=== PATIENT | female | born 1970 | race Caucasian/White ===

== ENCOUNTER → 2017-09-23 12:19 | Outpatient (CLI) | payer OTHER, SELFPAY ==
--- NOTE | 2017-09-23 | DI.MG.S_ITS ---
BILATERAL DIGITAL SCREENING MAMMOGRAM 3D/2D WITH CAD: 09/23/2017 CLINICAL: Routine screening. Family history of breast cancer. Comparison is made to exam dated: 11/06/2010 mammogram - [facility]. The tissue of both breasts is extremely dense, which lowers the sensitivity of mammography. Current study was also evaluated with a Computer Aided Detection (CAD) system. No significant masses, calcifications, or other findings are seen in either breast. There has been no significant interval change. IMPRESSION: NEGATIVE There is no mammographic evidence of malignancy. A 1 year screening mammogram is recommended. This exam was interpreted at Station ID: [id number]. NOTE: For mammograms, a report in lay terms will be sent to the patient. Approximately 15% of breast malignancies will not be visualized mammographically. In the management of a palpable breast mass, a negative mammogram must not discourage biopsy of a clinically suspicious lesion. Electronically Signed By: Emre mina/frankie:09/26/2017 07:37:40 letter sent: Normal Exam ACR BI-RADS Category 1: Negative 3341F
== END ==
PROVIDERS: Family Provider Family Medicine; PCP Family Medicine; Visit Provider Family Medicine
DX: Z12.31 Encounter for screening mammogram for malignant neoplasm of breast (principal); Z80.3 Family history of malignant neoplasm of breast
CPT/HCPCS: 77063; 77067

== ENCOUNTER 2017-09-27 11:55 | Emergency (ER) | payer OTHER, SELFPAY ==
--- NOTE | 2017-09-27 12:00 | ED_ITS ---
HPI - Wound/Laceration General Chief Complaint: Wound/Laceration Stated Complaint: SLICED UP RIGHT HAND Time Seen by Provider: 09/27/17 12:00 Source: patient Mode of arrival: ambulatory Limitations: no limitations History of Present Illness HPI narrative: Healthy 46-year-old bhayg-ssqp-thezpleb female here for evaluation of a cut to her left hand. States that it occurred while she was cutting an avocado. Unsure of her last tetanus shot. Held pressure on the area. Came in for evaluation Related Data Previous Rx's Medication Instructions Recorded estradiol [Vivelle-Dot] 1 patch TOPICAL SEE INSTRUCTIONS 07/22/17 #24 patch estradiol [Vivelle-Dot] 1 patch TOPICAL SEE INSTRUCTIONS 07/22/17 #8 patch Allergies Allergy/AdvReac Type Severity Reaction Status Date / Time ciprofloxacin [CIPROFLOXACIN] Allergy Unknown TENDONITIS Unverified 08/17/17 12: 20 promethazine [PROMETHAZINE] Allergy Unknown Unverified 08/17/17 12:20 Review of Systems Musculoskeletal Comments: Pain with movement of the MCP joint of the left hand Integumentary/Breasts Comments: Cut to left hand Neurologic Comments: Tingling to left index finger Hematologic/Lymphatic Denies easy bruising PFSH Surgical History Status post dilation and curettage (04/10/12) Status post dilation and curettage (09/17/11) Status post hysterectomy (09/17/11) Status post hysterectomy with oophorectomy Status post laparoscopy (09/17/11) Status post ovarian cystectomy (09/17/11) Family History Father CAD (coronary artery disease) CVA (cerebral infarction) Hyperlipidemia Family history of Alzheimer's disease Mother Hyperlipidemia Fibromyalgia muscle pain Cutaneous lupus erythematosus History of breast cancer, Onset Age: 64 Exam Initial Vital Signs Initial Vital Signs: Vital Signs Temperature 97.2 F L 09/27/17 12:11 Pulse Rate 88 09/27/17 12:11 Respiratory Rate 13 09/27/17 12:11 Blood Pressure 119/73 09/27/17 12:11 Pulse Oximetry 100 09/27/17 12:11 Skin Other: 2.5 cm laceration to the radial aspect of the left index finger over the MCP joint. Neuro Other: Sensation intact to light touch distal left index finger however does have some tingling on the radial aspect distally. Extrem Other: Painful movement of the MCP joint of the left index finger secondary to the cut in the location. No pain with movement of PIP D IP joint on the left index finger. Procedures Joint Aspiration/Injection Laceration 1: Site: hand Side (If applicable): left Size (cm): 2.5 Description: linear Depth: involves muscle layer Local Anesthetic: lidocaine 1% and with bicarb Amount of anesthesia used (mL): 3 Pre-repair: wound explored and irrigated extensively Skin layer closed with: nylon Size (cm): 3-0 Number of sutures: 6 Technique: simple, interrupted Muscle layer closed with: chromic gut Size: 5-0 Number of sutures: 1 Technique: simple, interrupted Course Vital Signs - 8 hr 09/27/17 12:11 Temperature 97.2 F L Pulse Rate 88 Respiratory Rate 13 Blood Pressure 119/73 Pulse Oximetry 100 MDM - Wound/Laceration MDM Narrative Medical decision making narrative: Patient is neurovascular intact over does have some tingling on the radial aspect of the distal index finger. Exploration of the wound does not reveal a severed tendon. Does have a small cut in the capsule of the MCP joint however though cut does not appear to go into the joint. One stitch was placed in this layer. Wound was closed as described above. Patient was informed that despite our interventions today she would have a scar. She was given care instructions. She was instructed that this was in the area where the nerve was and that tingling may persist in her finger and there is a small possibility that she would have deficits in this area. She expressed understanding. She was given care instructions. She was given return precautions. Were able to contact patient's primary doctor and found out that her last tetanus shot was within the past 10 years. Patient and expressed understanding and agreement with plan Discharge Plan Departure Patient Disposition: Home, Self-Care Clinical Impression: Hand laceration Instructions: How to Care for a Laceration After Repair Activity Restrictions/Additional Instructions: Keep the bandage on for the next 24 hr. After that you can shower like normal wash her hand like normal however do not soak her hand in anything. The stitches need to be removed in 7-10 days. You can follow up with her primary care doctor or return to the emergency department for this. Return to the emergency department sooner for any new symptoms, worsening pain, signs of infection, or any other concerning symptoms Prescriptions: No Action estradiol [Vivelle-Dot] 0.075 MG/24 HR patch semiweekly 1 patch Topical SEE INSTRUCTIONS Qty: 24 RF: 3 estradiol [Vivelle-Dot] 0.075 MG/24 HR patch semiweekly 1 patch Topical SEE INSTRUCTIONS Qty: 8 RF: 0
[2017-09-27 12:11] VITALS: BP 119/73; PULSE 88; RESP 13; TEMP 36.2; O2SAT 100
--- NOTE | 2017-09-27 12:38 | PC.NURSE ---
lac repaired by suture by , dressing margarito and nikolas. wound cleansed by md prior suture. told procedure well
[2017-09-27 12:51] VITALS: BP 111/61; PULSE 51; RESP 12; O2SAT 100
== END 2017-09-27 12:56 | disposition home or self-care (01) ==
PROVIDERS: Emergency Provider Emergency Medicine; Family Provider Family Medicine; PCP Family Medicine
DX: S61.411A Laceration without foreign body of right hand, initial encounter (principal); W26.0XXA Contact with knife, initial encounter
CPT/HCPCS: 12001; 12011; 99282; 99283

== ENCOUNTER → 2017-10-11 07:37 | Outpatient (CLI) | payer OTHER, SELFPAY ==
[2017-10-11 08:14] LABS: Cholesterol 228 mg/dL (140-199); HDL Cholesterol 53 mg/dL (40-60); LDL Cholesterol Calculated 151 mg/dL (<100); Triglycerides 120 mg/dL (35-150)
[2017-10-11 08:31] LABS: Free T3, Triiodothyronine Free 3.47 pg/mL (2.77-5.27); Free T4, Direct Thyroxine 0.92 ng/dL (0.78-2.19)
[2017-10-11 08:45] LABS: Thyroid Stimulating Hormone 2.57 uIU/mL (0.47-4.68)
[2017-10-13 15:15] LABS: Thyroid Peroxidase Antibodies 3 IU/mL (< 9)
== END ==
PROVIDERS: PCP Family Medicine; Visit Provider Naturopath
DX: E06.3 Autoimmune thyroiditis (principal); E78.2 Mixed hyperlipidemia
CPT/HCPCS: 36415; 80061; 84439; 84443; 84481; 86376

== ENCOUNTER → 2018-04-05 09:33 | Outpatient (CLI) | payer OTHER, SELFPAY ==
--- NOTE | 2018-04-05 09:34 | DI.ECHO.S_ITS ---
[facility] [facility]---------+ [facility] +---------+ : : [address] : : : : [id number] : : : : Phone: [phone] Echocardiogram Report + + :Name: JENIFER ESPANA Study Date: 04/05/2018 Height: 65 in : :[facility] Exam Location: [facility] Weight: 148 lb : : Gender: Female BSA: 1.7 m2 : :: 1970 Age: 47 yrs BP: 102/62 mmHg: :Reason For Study: Bicuspid Aortic Valve : :Ordering Physician: Ivan : :Tenzin Performed By: Marily Yu : :Referring: IVAN DOS SANTOS : + + Interpretation Summary The left ventricle is normal in size, wall thickness, and systolic function without any focal wall motion abnormalities. The ejection fraction is estimated to be 55-60%. There has been no significant change in LVEF since the previous study. The right ventricle is normal in size and function. The aortic valve is bicuspid. The aortic valve is mildly calcified. There is no hemodynamically significant valvular aortic stenosis. No aortic regurgitation is present. No significant change from the previous study. Procedure: A two-dimensional transthoracic echocardiogram with color flow and Doppler was performed. The study quality was technically adequate. Comparison is made with the echocardiogram of 01/13/2017. The patient was in sinus bradycardia with heart rates between 46-58 bpm during the exam. Left Ventricle: The left ventricle is normal in size, wall thickness, and systolic function without any focal wall motion abnormalities. There is no thrombus. The ejection fraction is estimated to be 55-60%. There has been no significant change since the previous study. Left ventricular wall motion is normal. Diastolic parameters suggest probable normal left ventricular diastolic function and normal filling pressures. Right Ventricle: The right ventricle is normal in size and function. Atria: Both atria are normal in size. There has been no significant change since the previous study. The interatrial septum is intact with no evidence for an atrial septal defect. Mitral Valve: The mitral valve is normal in structure and function. There is trace mitral regurgitation. Aortic Valve: The aortic valve is bicuspid. The aortic valve is mildly calcified. There is no hemodynamically significant valvular aortic stenosis. No aortic regurgitation is present. Tricuspid Valve: The tricuspid valve is normal in structure and function. There is a trace or physiologic amount of tricuspid regurgitation. Pulmonary artery pressures cannot be estimated because of the lack of a measurable TR jet velocity. Pulmonic Valve: The pulmonic valve is normal in structure and function. There is a trace or physiologic amount of pulmonic regurgitation. Great Vessels: The aortic root is normal size. The ascending aorta could not be visualized. The IVC is of normal diameter and collapses less than 50% with a sniff. This suggests a right atrial pressure of 8 mm Hg. Pericardium/ Pleura There is no pericardial effusion. There is no pleural effusion. MMode/2D Measurements & Calculations LVIDd: 4.5 cm LVOT diam: 2.1 cm LVIDs: 3.0 cm Ao root diam: 3.0 cm FS: 34.5 % IVSd: 0.59 cm LVPWd: 0.73 cm LV hinkle. diameter/BSA (cm/m^2): 2.6 LV sys. diameter/BSA (cm/m^2): 1.7 LA A2 area: 17.4 cm2 RA long axis: 4.4 cm LA A4 area: 14.3 cm2 RA area: 15.3 cm2 LA length (vol): 4.5 cm RA vol: 45.5 ml LA vol: 46.9 ml RA : 26.1 ml/m2 LA vol index: 27.0 ml/m2 IVC diam: 2.0 cm TAPSE: 2.4 cm Doppler Measurements & Calculations Ao V2 max: 203.2 cm/sec LVOT Max Álvaro: 78.9 cm/sec Ao V2 mean: 146.6 cm/sec LV V1 max P.5 mmHg Ao max P.5 mmHg LV V1 VTI: 19.0 cm Ao mean P.7 mmHg LUCIO(I,D): 1.2 cm2 Ao V2 VTI: 51.2 cm LUCIO(V,D): 1.3 cm2 sev ratio: 0.37 LUCIO indexed to BSA (cm^2/m^2): 0.70 MV E max álvaro: 88.9 cm/sec MV A max álvaro: 53.5 cm/sec MV E/A: 1.7 Med Peak E' Álvaro: 12.3 cm/sec E/E' med: 7.2 Lat Peak E' Álvaro: 14.5 cm/sec E/E' lat: 6.1 E/e' average: 6.7 MV dec time: 0.11 sec Reading Physician:EMMA
== END ==
PROVIDERS: PCP Family Medicine; Visit Provider Family Medicine
DX: Q23.1 Congenital insufficiency of aortic valve (principal)
CPT/HCPCS: 93306

== ENCOUNTER → 2018-12-14 16:58 | Outpatient (CLI) | payer OTHER, SELFPAY ==
--- NOTE | 2018-12-14 | DI.MG.S_ITS ---
BILATERAL DIGITAL SCREENING MAMMOGRAM 3D/2D WITH CAD: 12/14/2018 CLINICAL: Routine screening. Family history of breast cancer. Comparison is made to exams dated: 09/23/2017 mammogram - [facility] and 11/06/2010 mammogram - [facility]. The tissue of both breasts is heterogeneously dense. This may lower the sensitivity of mammography. Current study was also evaluated with a Computer Aided Detection (CAD) system. There are benign calcifications in both breasts. No significant masses, calcifications, or other findings are seen in either breast. There has been no significant interval change. IMPRESSION: There is no mammographic evidence of malignancy. A 1 year screening mammogram is recommended. This exam was interpreted at Station ID: [id number]. NOTE: For mammograms, a report in lay terms will be sent to the patient. Approximately 15% of breast malignancies will not be visualized mammographically. In the management of a palpable breast mass, a negative mammogram must not discourage biopsy of a clinically suspicious lesion. Electronically Signed By: Christopher pitt/frankie:12/15/2018 08:18:24 letter sent: Normal Exam ACR BI-RADS Category 2: Benign Finding(s) 3342F
== END ==
PROVIDERS: PCP Family Medicine; Visit Provider Family Medicine
DX: Z12.31 Encounter for screening mammogram for malignant neoplasm of breast (principal); Z80.3 Family history of malignant neoplasm of breast
CPT/HCPCS: 77063; 77067

== ENCOUNTER → 2018-12-15 15:17 | Outpatient (CLI) | payer OTHER, SELFPAY ==
[2018-12-15 15:35] LABS: Add Manual Diff / Slide Review NO; Basophils Absolute Auto 0 /uL (0-100); Basophils Percent Auto 0.4 % (0-2); Eosinophils Absolute Auto 100 /uL (0-450); Eosinophils Percent Auto 0.7 % (2-4); Hematocrit 39.7 % (36-46); Hemoglobin 13.7 g/dL (12.0-16.0); Lymphocytes Absolute Auto 2200 /uL (1100-4500); Lymphocytes Percent Auto 27.8 % (25-40); Mean Corpuscular HGB Conc 34.6 % (30-36); Mean Corpuscular Hemoglobin 31.4 PG (26-34); Mean Corpuscular Volume 90.5 fL (80-100); Monocytes Absolute Auto 500 /uL (0-900); Monocytes Percent Auto 6.6 % (3-14); Neutrophils Absolute Auto 5100 /uL (1500-7000); Neutrophils Percent Auto 64.5 % (50-75); Platelet Count 199 X10^3/uL (150-400); Red Blood Cell Count 4.38 X10^6/uL (4.0-5.2); White Blood Cell Count 7.8 X10^3/uL (4.5-11.0)
[2018-12-15 16:46] LABS: Alanine Aminotransferase 22 IU/L (9-52); Albumin 4.5 g/dL (3.5-5.0); Albumin Globulin Ratio 1.6 (1.0-2.8); Alkaline Phosphatase 66 U/L (38-126); Aspartate Aminotransferase 33 IU/L (14-36); BUN Creatinine Ratio 21.4 (6-22); Bilirubin Total 0.6 mg/dL (0.2-1.3); Blood Urea Nitrogen 15 mg/dL (7-17); Calcium 9.3 mg/dL (8.4-10.2); Carbon Dioxide 30 mmol/L (22-32); Chloride 100 mmol/L (98-107); Estimated Glomerular Filt Rate > 60.0 mL/min (>60); Globulin 2.9 g/dL (1.7-4.1); Glucose 90 mg/dL (70-100); HEMOLYSIS < 15 (0-50); Potassium 3.8 mmol/L (3.4-5.1); Sodium 139 mmol/L (137-145); Total Protein 7.4 g/dL (6.3-8.2)
[2018-12-15 17:13] LABS: TSH w/ Reflex to FT4 2.66 uIU/mL (0.47-4.68)
== END ==
PROVIDERS: PCP Family Medicine; Visit Provider Physician Assistant
DX: R11.0 Nausea (principal)
CPT/HCPCS: 36415; 80053; 84443; 85025; 87045; 87177; 87899

== ENCOUNTER → 2018-12-25 16:58 | Outpatient (CLI) | payer OTHER, SELFPAY | PROVIDERS: PCP Family Medicine; Visit Provider Family Medicine | DX: K29.70 Gastritis, unspecified, without bleeding (principal) | CPT/HCPCS: 83013 ==

== ENCOUNTER → 2019-05-10 09:36 | Outpatient (CLI) | payer OTHER, SELFPAY ==
--- NOTE | 2019-05-10 09:37 | DI.RAD.S_ITS ---
PROCEDURE: XR KNEE LT 3V INDICATIONS: twisted left knee TECHNIQUE: 3 views of the knee were acquired. COMPARISON: None. FINDINGS: Bones: No fractures or dislocations. No suspicious bony lesions. Soft tissues: [id number]-[id number] joint effusion is seen.. No suspicious soft tissue calcifications. IMPRESSION: [id number] left knee joint effusion. No fracture or dislocation. If indicated, MRI of left knee can be done for further evaluation for internal derangement. Dictated by: Cyrus Real M.D. on 05/10/2019 at 10:27 Approved by: Cyrus Real M.D. on 05/10/2019 at 10:32
== END ==
PROVIDERS: Family Provider Family Medicine; PCP Family Medicine; Visit Provider Physician Assistant
DX: M25.562 Pain in left knee (principal); M25.462 Effusion, left knee
CPT/HCPCS: 73562

== ENCOUNTER → 2020-07-12 13:29 | Outpatient (CLI) | payer OTHER, SELFPAY ==
--- NOTE | 2020-07-12 | DI.MG.S_ITS ---
BILATERAL DIGITAL SCREENING MAMMOGRAM 3D/2D WITH CAD: 07/12/2020 CLINICAL: Routine screening. Family history of breast cancer. Comparison is made to exams dated: 12/14/2018 mammogram, 09/23/2017 mammogram - [facility], and 11/06/2010 mammogram - [facility]. The tissue of both breasts is heterogeneously dense. This may lower the sensitivity of mammography. Current study was also evaluated with a Computer Aided Detection (CAD) system. There are benign calcifications in both breasts. No significant masses, calcifications, or other findings are seen in either breast. There has been no significant interval change. IMPRESSION: BENIGN There is no mammographic evidence of malignancy. A 1 year screening mammogram is recommended. This exam was interpreted at Station ID: [id number]. NOTE: For mammograms, a report in lay terms will be sent to the patient. Approximately 15% of breast malignancies will not be visualized mammographically. In the management of a palpable breast mass, a negative mammogram must not discourage biopsy of a clinically suspicious lesion. Electronically Signed By: Emre mina/frankie:07/14/2020 08:17:55 letter sent: Normal Exam ACR BI-RADS Category 2: Benign Finding(s) 3342F
== END ==
PROVIDERS: Family Provider Family Medicine; PCP Family Medicine; Referring Provider Family Medicine; Visit Provider Family Medicine
DX: Z12.31 Encounter for screening mammogram for malignant neoplasm of breast (principal); Z80.3 Family history of malignant neoplasm of breast
CPT/HCPCS: 77063; 77067

== ENCOUNTER → 2020-08-06 13:25 | Outpatient (CLI) | payer OTHER, SELFPAY ==
[2020-08-06] MEDS: COVID-19 VACC #1, MRNA(MOD) 100 MCG/0.5 ML VIAL IM (13:33)
== END ==
PROVIDERS: Family Provider Family Medicine; PCP Family Medicine; Visit Provider Internal Medicine
DX: Z23 Encounter for immunization (principal)
CPT/HCPCS: 0011A; 91301

== ENCOUNTER → 2020-09-03 10:17 | Outpatient (CLI) | payer OTHER, SELFPAY ==
[2020-09-03] MEDS: COVID-19 VACC #2, MRNA(MOD) 100 MCG/0.5 ML VIAL IM (10:27)
== END ==
PROVIDERS: Family Provider Family Medicine; PCP Family Medicine; Visit Provider Internal Medicine
DX: Z23 Encounter for immunization (principal)
CPT/HCPCS: 0012A; 91301

== ENCOUNTER → 2020-10-22 07:11 | Outpatient (CLI) | payer OTHER, SELFPAY ==
[2020-10-22 08:53] LABS: Alanine Aminotransferase 21 IU/L (<35); Albumin 4.1 g/dL (3.5-5.0); Albumin Globulin Ratio 1.4 (1.0-2.8); Alkaline Phosphatase 72 U/L (38-126); Aspartate Aminotransferase 41 IU/L (14-36); BUN Creatinine Ratio 15.9 (6-22); Bilirubin Total 0.7 mg/dL (0.2-1.3); Blood Urea Nitrogen 11 mg/dL (7-17); Calcium 9.4 mg/dL (8.4-10.2); Carbon Dioxide 32 mmol/L (22-32); Chloride 100 mmol/L (98-107); Cholesterol 211 mg/dL (140-199); Estimated Glomerular Filt Rate > 60.0 mL/min (>60); Glucose 77 mg/dL (70-100); HDL Cholesterol 47 mg/dL (40-60); HEMOLYSIS < 15 (0-50); LDL Cholesterol Calculated 137 mg/dL (<100); Potassium 3.5 mmol/L (3.4-5.1); Sodium 137 mmol/L (137-145); Total Protein 7.1 g/dL (6.3-8.2); Triglycerides 137 mg/dL (35-150)
[2020-10-27 16:49] LABS: H.pylori IgG 0.23 (0.00-0.79)
== END ==
PROVIDERS: PCP Family Medicine; Referring Provider Family Medicine; Visit Provider Family Medicine
DX: E78.2 Mixed hyperlipidemia (principal); K29.90 Gastroduodenitis, unspecified, without bleeding
CPT/HCPCS: 36415; 80053; 80061; 86140; 86677

== ENCOUNTER → 2020-10-30 08:59 | Outpatient (CLI) | payer OTHER, SELFPAY ==
--- NOTE | 2020-10-30 09:00 | DI.ECHO.S_ITS ---
[facility] +---------+ : : [address] : [place] : : : : [id number] : : : : Phone: [phone] +---------+ Echocardiogram Report + + :Name: JENIFER ESPANA Study Date: 10/30/2020 Height: 65 in : :[employer] ReadingLocation: Weight: 134 lb : : Gender: Female BSA: 1.7 m2 : :: 1970 Age: 49 yrs BP: 116/68 mmHg: :Reason For Study: Aortic, Biscupid Valve : :Ordering Physician: RAYA, : :IVAN Performed By: Jong Rivera : :Referring: IVAN DOS SANTOS : + + Interpretation Summary The ejection fraction is estimated to be 55-60%. There are no obvious focal wall motion abnormalities noted but poor endocardial definition reduces the sensitivity for the detection of such. There is mild aortic stenosis. The aortic valve mean gradient is 12 mmHg. A bicuspid aortic valve cannot be excluded. The IVC is dilated (diameter is greater than 2.1 cm) yet it collapses greater than 50% with a sniff. This suggests a right atrial pressure of 8 mm Hg. Procedure: A two-dimensional transthoracic echocardiogram with color flow and Doppler was performed. The study quality was technically adequate. Comparison is made with the echocardiogram of 04/05/2018. The patient was in sinus rhythm with heart rates between 48-62 bpm during the exam. Left Ventricle: The left ventricle is normal in size and wall thickness. Left ventricular systolic function is normal. The ejection fraction is estimated to be 55-60%. There has been no significant change since the previous exam. There are no obvious focal wall motion abnormalities noted but poor endocardial definition reduces the sensitivity for the detection of such. Diastolic parameters suggest probable normal left ventricular diastolic function and normal filling pressures. Right Ventricle: The right ventricle is normal in size and function. Atria: Both atria are normal in size. There is no Doppler evidence for an interatrial shunt. Mitral Valve: The mitral valve is normal in structure and function. There is trace mitral regurgitation. Aortic Valve: A bicuspid aortic valve cannot be excluded. There is mild aortic stenosis. The aortic valve mean gradient is 12 mmHg. The peak aortic velocity is 2.3 m/sec. No aortic regurgitation is present. Tricuspid Valve: The tricuspid valve is normal in structure and function. There is trace tricuspid regurgitation. Pulmonary artery pressures cannot be estimated because of the lack of a measurable TR jet velocity but the IVC suggests a CVP of around 8 mmHg. Pulmonic Valve: The pulmonic valve is not well visualized. There is no pulmonic valvular regurgitation. Great Vessels: The aortic root is normal size. The ascending aorta could not be visualized. The IVC is dilated (diameter is greater than 2.1 cm) yet it collapses greater than 50% with a sniff. This suggests a right atrial pressure of 8 mm Hg. Pericardium/ Pleura There is no pericardial effusion. There is no pleural effusion. MMode/2D Measurements & Calculations LVIDd: 4.6 cm LVOT diam: 1.9 cm LVIDs: 3.2 cm Ao root diam: 2.7 cm FS: 29.6 % IVSd: 0.63 cm LVPWd: 0.62 cm LV hinkle. diameter/BSA (cm/m^2): 2.8 LV sys. diameter/BSA (cm/m^2): 1.9 LA A4 area: 12.1 cm2 RA long axis: 3.7 cm LA length (vol): 3.9 cm RA area: 10.1 cm2 RA vol: 23.6 ml RA : 14.1 ml/m2 IVC diam: 2.3 cm RVD1 (basal): 3.4 cm TAPSE: 2.8 cm Doppler Measurements & Calculations Ao V2 max: 230.4 cm/sec LVOT Max Álvaro: 89.9 cm/sec Ao V2 mean: 167.3 cm/sec LV V1 max P.2 mmHg Ao max P.2 mmHg LV V1 VTI: 21.7 cm Ao mean P.3 mmHg LUCIO(I,D): 1.2 cm2 Ao V2 VTI: 52.6 cm LUCIO(V,D): 1.1 cm2 sev ratio: 0.41 LUCIO indexed to BSA (cm^2/m^2): 0.73 MV E max álvaro: 97.2 cm/sec PA V2 max: 81.0 cm/sec MV A max álvaro: 60.0 cm/sec PA V2 mean: 55.1 cm/sec MV E/A: 1.6 PA mean P.4 mmHg Med Peak E' Álvaro: 13.2 cm/sec PA pr(Accel): 2.2 mmHg E/E' med: 7.4 Lat Peak E' Álvaro: 13.1 cm/sec E/E' lat: 7.4 E/e' average: 7.4 MV dec time: 0.26 sec SV(LVOT): 63.8 ml Reading Physician:03:53 PM
== END ==
PROVIDERS: PCP Family Medicine; Referring Provider Family Medicine; Visit Provider Family Medicine
DX: Q23.1 Congenital insufficiency of aortic valve (principal)
CPT/HCPCS: C8929; Q9957

== ENCOUNTER 2020-12-02 10:30 | Outpatient (RCR) | payer OTHER, SELFPAY ==
--- NOTE | 2020-10-17 18:27 | PT.OIE ---
Current Diagnoses Stiffness of right hip, not elsewhere classified (10/17/20) Stiffness of left hip, not elsewhere classified (10/17/20) Other specified disorders of muscle (10/17/20) Post-void dribbling (10/17/20) Mixed incontinence (10/17/20) Abnormal posture (10/17/20) Past Medical History (Last Updated 08/30/20 @ 13:07 by Astrid Dave DO) Bicuspid aortic valve Hyperlipidemia Pelvic floor relaxation Past Surgical History (Last Updated 03/14/20 @ 16:20 by Astrid Dave DO) History of esophagogastroduodenoscopy (EGD) (~03/14/20) Status post appendectomy (04/29/14) Status post dilation and curettage (04/10/12) Status post dilation and curettage (09/17/11) Status post hysterectomy with oophorectomy (04/29/14) Status post hysteroscopy (09/17/11) Status post laparoscopy (09/17/11) Status post ovarian cystectomy (09/17/11) Visit Care Team Role Provider Type Astrid Dave DO Attending Provider Physician Primary Care Provider Referring Provider Specialty: [facility] Address: [address] [place] [address], [address], [facility] Email: [email or web address] Physical Therapy Initial Evaluation PT-OP-A Visit Information Start: 10/13/20 18:40 Freq: Status: Active Protocol: Document 10/17/20 10:38 LRN (Rec: 10/17/20 11:25 LRN [id number]) Out-Patient Physical Therapy Visit Information Visit Information Visit Type Initial Evaluation Visit Start Time 10:38 Visit Stop Time 11:21 Total Visit Minutes 43 Visit Number 1 Evaluation Information Evaluation Date 10/17/20 Precautions Precautions History or Endometriosis ( surgery at time of hyste) Hyste with ovaries and cervix removed (2013) Cervicalgia with hx of ruptured C5 (2010) 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 Torn LCL & ACL and fx tibia plateau - 05/09/2019 PT-OP-B Current Condition Start: 10/13/20 18:40 Freq: Status: Active Protocol: Document 10/17/20 10:38 LRN (Rec: 10/17/20 11:25 LRN [id number]) Current Condition History of Current Condition Onset Date 1 yr ago. Current Complaints Urinary frequency & incontinence w/occasional sneezing & trampoline use History of Current Condition Childbirth 2008, endometriosis with hyste (ovaries and cervix removed at [facility] in [place]) and endometrial tissue removed. Since surgery has occasional sharp jabs of pain pitch fork into abdomen happens 3x/ month (previously was 3x/day). Has done a lot to take out inflammation (no gluten or dairy) with lessening of pain. Prior Treatments and Tests Hyste in 2013 with excision of interior tissue to remove endometriosis tissue. First year had no bladder issue. Wears estrogen patch. Developmental History Developmental History Previous hx of Ruptured C5 - 2010. Has reduced inflammation in body by changing diet and lifestyle (lost 15# in 1.5 yrs ). Swims and rides bike. Treatment Goals Patient/Caregiver Goals Pt goal is to reduce urinary frequency and urinary leakage with sneezing and more confident jumping up/down. Prior Functional Status Baseline Function- ADL's Independent Baseline Function- Mobility Independent Baseline Function- Other No leakage with sneezing or jumping Frequent urination every 2 hrs . Current Functional Impairments (Reported) Functional Limitations- ADL's Uriary leakage with sneezing or jumping Frequent urination - hourly or less. 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 Personal Factors Other Personal Factors That May Effect Currently looking for a job. Therapy/Recovery History or Endometriosis ( surgery at time of hyste). Hyste with ovaries and cervix removed (2013). Cervicalgia with hx of ruptured C5 (2010). PT-OP-C Subjective Start: 10/13/20 18:40 Freq: Status: Active Protocol: Document 10/17/20 10:38 LRN (Rec: 10/17/20 11:25 LRN [id number]) Patient Questionnaires Pelvic Pain and Urgency/Frequency Patient Symptom Scale Pelvic Pain Score 17 (15-19 =76% +PST) OP-PT Pain Assessment Pain Assessment Grid Paper Pain Assessment Grid Completed No Location Bilateral Lower Abdomen Pain Location Details Intermittent Internal abdomen - Endo related Intensity 10 Scale Used Numeric (0 - 10) Description Sharp,Stabbing Comments Pain Comments Currently no palpable pain in lower abdominal region or external PF. PT-OP-I Pelvic Floor Start: 10/13/20 18:40 Freq: Status: Active Protocol: Document 10/17/20 10:38 LRN (Rec: 10/17/20 11:25 LRN [id number]) Pelvic Floor Assessment Urine Pelvic Floor Surgery No Urinary Symptoms Dribbling After Urination Other Urinary Symptoms Time between voids is every hour. Volume of urine passed is small. Sometimes feels bladder if full after urinating. Leakage Size Small Leakage Cause Sneeze Other Leakage Causes Jumping, waiting too long. Leaks Per Day Unknown Voiding Frequency 10-15 Nocturia 1 Bowel Bowel Surgery No Bowel Movement Frequency 1-2x/day [place] Stool Chart Type 1-7 4 Pelvic Clock Pelvic Clock 3-6 Tightness Pelvic Clock 6-9 Tightness Contraction Ability Manual Muscle Testing Left 3 Manual Muscle Testing Right 2 Manual Muscle Testing Anterior 3 Manual Muscle Testing Posterior 3 Muscle Endurance (Seconds) 10 Number of Quick Contractions In 10 10 Seconds Comments Pelvic Floor Comments Redness and tenderness of Labia Minora bilaterally. PT-OP-J Posture/Palpation/Skin Start: 10/13/20 18:40 Freq: Status: Active Protocol: Document 10/17/20 10:38 LRN (Rec: 10/17/20 11:25 LRN [id number]) Posture Evaluation Comments Posture Comments Sway back, slight anterior rotated pelvis. PT-OP-K Range of Motion Start: 10/13/20 18:40 Freq: Status: Active Protocol: Document 10/17/20 10:38 LRN (Rec: 10/17/20 11:25 LRN [id number]) Lumbar Spine Range of Motion Lumbar Spine Active Degrees Testing Position Standing Flexion 90 Extension 10 Rotation Left 40 Rotation Right 40 Lateral Flexion Left 10 Lateral Flexion Right 20 Hip Goniometric Range of Motion Hip Right Passive Testing Position Supine Abduction 40 Internal Rotation 35 External Rotation 45 Left Passive Testing Position Supine Abduction 30 Internal Rotation 30 External Rotation 60 PT-OP-M Strength Start: 10/13/20 18:40 Freq: Status: Active Protocol: Document 10/17/20 10:38 LRN (Rec: 10/17/20 11:25 LRN [id number]) Hip Strength Hip Manual Muscle Testing Right External Rotation 4+ Good+ Internal Rotation 4+ Good+ Left External Rotation 3 Fair Internal Rotation 4+ Good+ PT-OP-Q Treatments Start: 10/13/20 18:40 Freq: Status: Active Protocol: Document 10/17/20 10:38 LRN (Rec: 10/17/20 11:25 LRN [id number]) Self-Care/Home Management Treatment Education Other Education Discussed results of evaluation, goals & Plan of care, pt agreeable. Pt educated in use of Bladder Diary and I/S in tracking for 1 week. Discussed use of 2 different diaries for tracking of bladder. Activities Self-Care/Home Management Activities I/S pt in Happy Baby, DKTC stretch. PT-OP-T Assessment and Plan Start: 10/13/20 18:40 Freq: Status: Active Protocol: Document 10/17/20 10:38 LRN (Rec: 10/17/20 11:25 LRN [id number]) Physical Therapy Assessment Rehab Potential Rehabilitation Potential Good Evaluation Complexity Number of Personal Factors/Comorbidities 1-2 Number of Body Systems Impaired 4 or More Clinical Presentation at Evaluation Evolving Impairments Impairments Activity Tolerance,Pain, Posture,ROM,Strength Goals Three Impairment Urinary leakage with sneezing or jumping. Short Term Goal (STG) Pt will be able to sneeze without urinary leakage for improved pelvic health. STG Duration 11/28/20 Alf Goal (LTG) Pt will be able to confidently jump with less fear of urinary leakage for improved social engagement with activities such as stair ambulation. LTG Duration 01/15/21 Two Impairment Increased urinary frequency ( every hour) Short Term Goal (STG) Pt will be educated in PF/hip/ core stretches and urinary delay technique for bladder retraining. STG Duration 11/28/20 Registered Nurse Cardiovascular [facility] Goal (LTG) Decrease toileting frequency to every 2 hours or more during the day to allow pt to return to workforce without fear of frequent voiding. LTG Duration 01/15/21 One Impairment Lacks appropriate self care HEP Short Term Goal (STG) Pt will be educated in general vulvar and genital care. STG Duration 10/28/20 Alf Goal (LTG) Pt will be independent in a self care HEP and use of dilator for PF stretching. LTG Duration 01/15/21 Assessment Summary Assessment Pt presents with mixed incontinence due to PF tightness and soft tissue tightness of the lumbar spine and bilateral hips. Fortunately she doesn't appear to have involvement of her bowels. Her history of endometriosis may hinder the progress in her rehabilitation contributing to muscle tightness, although currently she is having reduced episodes of pelvic pain. The pt is mildly dry in her PF but she has noteable redness of her labia minor that may be associated to her genital/ vulvar care. If it doesn't improve after education in proper care she will be referred back for assessment/ treatment. The pt will benefit from skilled physical therapy to address the above stated goals. Physical Therapy Plan Frequency and Duration Frequency of Treatment 1x/Week Plan of Care Start Date 10/17/20 Plan of Care End Date 01/15/21 Therapeutic Interventions Therapeutic Interventions Aquatic Therapy,Home Exercise Program,Joint Mobilizations, Manual Therapy,Patient/ Caregiver Education,Self-Care/ Home Management,Soft Tissue Mobilization,Therapeutic Activities,Therapeutic Exercises Modalities Biofeedback Next Visit Focus/Plan Next Note Type Treatment Note Next Visit Plan Review bladder diary, pt education in proper vulvar/ genital care, deep breathing and transfers, proper squatting and lifting, sit to stand; HEP: PF/core/hip stretches, PF stretching with dilator, discuss foods, and water intake, downtraining of ANS. Improve hip/trunk mobility, improve abdominal soft tissue (bladder) mobility as needed.
--- NOTE | 2020-10-17 18:28 | PT.OPPOC ---
Physical, Occupational & Speech Therapy At [facility] Current Diagnoses Stiffness of right hip, not elsewhere classified (10/17/20) Stiffness of left hip, not elsewhere classified (10/17/20) Other specified disorders of muscle (10/17/20) Post-void dribbling (10/17/20) Mixed incontinence (10/17/20) Abnormal posture (10/17/20) Visit Care Team Role Provider Type Astrid Dave DO Attending Provider Physician Primary Care Provider Referring Provider Specialty: Family Practice Address: [address] [place] [address], [facility] [address], [address] Email: [email or web address] Plan Of Care PT-OP-T Assessment and Plan Start: 10/13/20 18:40 Freq: Status: Active Protocol: Document 10/17/20 10:38 LRN (Rec: 10/17/20 11:25 LRN [id number]) Physical Therapy Assessment Rehab Potential Rehabilitation Potential Good Evaluation Complexity Number of Personal Factors/Comorbidities 1-2 Number of Body Systems Impaired 4 or More Clinical Presentation at Evaluation Evolving Impairments Impairments Activity Tolerance,Pain, Posture,ROM,Strength Goals Three Impairment Urinary leakage with sneezing or jumping. Short Term Goal (STG) Pt will be able to sneeze without urinary leakage for improved pelvic health. STG Duration 11/28/20 Snf Goal (LTG) Pt will be able to confidently jump with less fear of urinary leakage for improved social engagement with activities such as stair ambulation. LTG Duration 01/15/21 Two Impairment Increased urinary frequency ( every hour) Short Term Goal (STG) Pt will be educated in PF/hip/ core stretches and urinary delay technique for bladder retraining. STG Duration 11/28/20 Snf Goal (LTG) Decrease toileting frequency to every 2 hours or more during the day to allow pt to return to workforce without fear of frequent voiding. LTG Duration 01/15/21 One Impairment Lacks appropriate self care HEP Short Term Goal (STG) Pt will be educated in general vulvar and genital care. STG Duration 10/28/20 Snf Goal (LTG) Pt will be independent in a self care HEP and use of dilator for PF stretching. LTG Duration 01/15/21 Assessment Summary Assessment Pt presents with mixed incontinence due to PF tightness and soft tissue tightness of the lumbar spine and bilateral hips. Fortunately she doesn't appear to have involvement of her bowels. Her history of endometriosis may hinder the progress in her rehabilitation contributing to muscle tightness, although currently she is having reduced episodes of pelvic pain. The pt is mildly dry in her PF but she has noteable redness of her labia minor that may be associated to her genital/ vulvar care. If it doesn't improve after education in proper care she will be referred back for assessment/ treatment. The pt will benefit from skilled physical therapy to address the above stated goals. Physical Therapy Plan Frequency and Duration Frequency of Treatment 1x/Week Plan of Care Start Date 10/17/20 Plan of Care End Date 01/15/21 Therapeutic Interventions Therapeutic Interventions Aquatic Therapy,Home Exercise Program,Joint Mobilizations, Manual Therapy,Patient/ Caregiver Education,Self-Care/ Home Management,Soft Tissue Mobilization,Therapeutic Activities,Therapeutic Exercises Modalities Biofeedback Next Visit Focus/Plan Next Note Type Treatment Note Next Visit Plan Review bladder diary, pt education in proper vulvar/ genital care, deep breathing and transfers, proper squatting and lifting, sit to stand; HEP: PF/core/hip stretches, PF stretching with dilator, discuss foods, and water intake, downtraining of ANS. Improve hip/trunk mobility, improve abdominal soft tissue (bladder) mobility as needed. Plan of Care Dates Plan of Care Start Date 10/17/20 Plan of Care End Date 01/15/21 Electronically Signed by: Gina Richey, PT 10/17/20 [id number] Please Sign and Return: I have reviewed this Plan of Care and certify that the skilled therapy services above are required to meet the patient?s needs. Physician Signature Date Printed Name and Credentials Clinical Instructor Signature Printed Name and Credentials
--- NOTE | 2020-10-24 16:19 | PT.OTN ---
Current Diagnoses Stiffness of right hip, not elsewhere classified (10/24/20) Stiffness of left hip, not elsewhere classified (10/24/20) Other specified disorders of muscle (10/24/20) Post-void dribbling (10/24/20) Mixed incontinence (10/24/20) Abnormal posture (10/24/20) Physical Therapy Treatment Note PT-OP-A Visit Information Start: 10/13/20 18:40 Freq: Status: Active Protocol: Document 10/24/20 13:35 LRN (Rec: 10/24/20 14:19 LRN [id number]) Out-Patient Physical Therapy Visit Information Visit Information Visit Type Treatment Note Visit Start Time 13:35 Visit Stop Time 14:14 Total Visit Minutes 44 Visit Number 2 Evaluation Information Evaluation Date 10/17/20 Precautions Precautions History or Endometriosis ( surgery at time of hyste) Hyste with ovaries and cervix removed (2013) Cervicalgia with hx of ruptured C5 (2010) 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 Torn LCL & ACL and fx tibia plateau - 05/09/2019 PT-OP-B Current Condition Start: 10/13/20 18:40 Freq: Status: Active Protocol: Document 10/17/20 10:38 LRN (Rec: 10/17/20 11:25 LRN [id number]) Current Condition History of Current Condition Onset Date 1 yr ago. Current Complaints Urinary frequency & incontinence w/occasional sneezing & trampoline use History of Current Condition Childbirth 2008, endometriosis with hyste (ovaries and cervix removed at [facility] in [place]) and endometrial tissue removed. Since surgery has occasional sharp jabs of pain pitch fork into abdomen happens 3x/ month (previously was 3x/day). Has done a lot to take out inflammation (no gluten or dairy) with lessening of pain. Prior Treatments and Tests Hyste in 2013 with excision of interior tissue to remove endometriosis tissue. First year had no bladder issue. Wears estrogen patch. Developmental History Developmental History Previous hx of Ruptured C5 - 2010. Has reduced inflammation in body by changing diet and lifestyle (lost 15# in 1.5 yrs ). Swims and rides bike. Treatment Goals Patient/Caregiver Goals Pt goal is to reduce urinary frequency and urinary leakage with sneezing and more confident jumping up/down. Prior Functional Status Baseline Function- ADL's Independent Baseline Function- Mobility Independent Baseline Function- Other No leakage with sneezing or jumping Frequent urination every 2 hrs . Current Functional Impairments (Reported) Functional Limitations- ADL's Uriary leakage with sneezing or jumping Frequent urination - hourly or less. 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 Personal Factors Other Personal Factors That May Effect Currently looking for a job. Therapy/Recovery History or Endometriosis ( surgery at time of hyste). Hyste with ovaries and cervix removed (2013). Cervicalgia with hx of ruptured C5 (2010). PT-OP-C Subjective Start: 10/13/20 18:40 Freq: Status: Active Protocol: Document 10/24/20 13:35 LRN (Rec: 10/24/20 14:19 LRN [id number]) OP-PT Subjective Patient Comments Patient Comments Didn't do bladder diary. This past week very hectic. Noticed with coffee she had more frequency and urgency. Consuming 25 or less mg of caffeine. PT-OP-I Pelvic Floor Start: 10/13/20 18:40 Freq: Status: Active Protocol: Document 10/17/20 10:38 LRN (Rec: 10/17/20 11:25 LRN [id number]) Pelvic Floor Assessment Urine Pelvic Floor Surgery No Urinary Symptoms Dribbling After Urination Other Urinary Symptoms Time between voids is every hour. Volume of urine passed is small. Sometimes feels bladder if full after urinating. Leakage Size Small Leakage Cause Sneeze Other Leakage Causes Jumping, waiting too long. Leaks Per Day Unknown Voiding Frequency 10-15 Nocturia 1 Bowel Bowel Surgery No Bowel Movement Frequency 1-2x/day [place] Stool Chart Type 1-7 4 Pelvic Clock Pelvic Clock 3-6 Tightness Pelvic Clock 6-9 Tightness Contraction Ability Manual Muscle Testing Left 3 Manual Muscle Testing Right 2 Manual Muscle Testing Anterior 3 Manual Muscle Testing Posterior 3 Muscle Endurance (Seconds) 10 Number of Quick Contractions In 10 10 Seconds Comments Pelvic Floor Comments Redness and tenderness of Labia Minora bilaterally. PT-OP-J Posture/Palpation/Skin Start: 10/13/20 18:40 Freq: Status: Active Protocol: Document 10/17/20 10:38 LRN (Rec: 10/17/20 11:25 LRN [id number]) Posture Evaluation Comments Posture Comments Sway back, slight anterior rotated pelvis. PT-OP-K Range of Motion Start: 10/13/20 18:40 Freq: Status: Active Protocol: Document 10/17/20 10:38 LRN (Rec: 10/17/20 11:25 LRN [id number]) Lumbar Spine Range of Motion Lumbar Spine Active Degrees Testing Position Standing Flexion 90 Extension 10 Rotation Left 40 Rotation Right 40 Lateral Flexion Left 10 Lateral Flexion Right 20 Hip Goniometric Range of Motion Hip Right Passive Testing Position Supine Abduction 40 Internal Rotation 35 External Rotation 45 Left Passive Testing Position Supine Abduction 30 Internal Rotation 30 External Rotation 60 PT-OP-M Strength Start: 10/13/20 18:40 Freq: Status: Active Protocol: Document 10/17/20 10:38 LRN (Rec: 10/17/20 11:25 LRN [id number]) Hip Strength Hip Manual Muscle Testing Right External Rotation 4+ Good+ Internal Rotation 4+ Good+ Left External Rotation 3 Fair Internal Rotation 4+ Good+ PT-OP-Q Treatments Start: 10/13/20 18:40 Freq: Status: Active Protocol: Document 10/24/20 13:35 LRN (Rec: 10/24/20 14:19 LRN [id number]) Therapeutic Exercises Supine Exercises Happy Baby Pose Supine Exercise Name Happy Baby Pose Reps/Minutes 3' Deep Breathing Supine Exercise Name Deep Breathing Training Reps/Minutes 10' Therapeutic Activity Therapeutic Activity Sit<>Stand w/breathing Name Sit <> stand w/breathing training Reps/Minutes 2' Sit<>Supine w/breathing Name Sit <> Supine w/breathing training Reps/Minutes 4' Comments Including verbal training/ cuing for transfers Self-Care/Home Management Treatment Education Other Education 20' Education in vulvar care and general genital hygiene. Transfer training w/breathing. Activities Self-Care/Home Management Activities Issued and reviewed HEP: Happy Baby Pose. Issued and reviewed for education (see above) handouts for general vulvar and genital care. PT-OP-T Assessment and Plan Start: 10/13/20 18:40 Freq: Status: Active Protocol: Document 10/24/20 13:35 LRN (Rec: 10/24/20 14:19 LRN [id number]) Physical Therapy Assessment Goals Three Impairment Urinary leakage with sneezing or jumping. Short Term Goal (STG) Pt will be able to sneeze without urinary leakage for improved pelvic health. STG Duration 11/28/20 Mortgage Loan Closer Goal (LTG) Pt will be able to confidently jump with less fear of urinary leakage for improved social engagement with activities such as stair ambulation. LTG Duration 01/15/21 Two Impairment Increased urinary frequency ( every hour) Short Term Goal (STG) Pt will be educated in PF/hip/ core stretches and urinary delay technique for bladder retraining. STG Duration 11/28/20 Mortgage Loan Closer Goal (LTG) Decrease toileting frequency to every 2 hours or more during the day to allow pt to return to workforce without fear of frequent voiding. LTG Duration 01/15/21 One Impairment Lacks appropriate self care HEP Short Term Goal (STG) Pt will be educated in general vulvar and genital care. STG Duration 10/28/20 Mortgage Loan Closer Goal (LTG) Pt will be independent in a self care HEP and use of dilator for PF stretching. LTG Duration 01/15/21 Assessment Summary Assessment Not able to review bladder diary because pt didn't complete. With deep breathing pt limited in L rib excursion , but was able to improve with practice to improve symmetry of movement. She still demonstrates shallow abdominal excursion; therefore further training needed. Pt receptive to PF care information. After discussion it appears use of bike may be causing labia minora skin irritation/ redness. Pt to monitor. Physical Therapy Plan Frequency and Duration Frequency of Treatment 1x/Week Plan of Care Start Date 10/17/20 Plan of Care End Date 01/15/21 Next Visit Focus/Plan Next Note Type Treatment Note Next Visit Plan Review bladder diary, review deep breathing and transfers. Teach proper squatting and lifting w/appropriate breathing and with sit to stand; HEP: PF/core/hip stretches, PF stretching with dilator, discuss foods, and water intake, downtraining of ANS. Improve hip/trunk mobility, improve abdominal soft tissue (bladder) mobility as needed.
--- NOTE | 2020-11-07 17:04 | PT.OTN ---
Current Diagnoses Stiffness of right hip, not elsewhere classified (11/07/20) Stiffness of left hip, not elsewhere classified (11/07/20) Other specified disorders of muscle (11/07/20) Post-void dribbling (11/07/20) Mixed incontinence (11/07/20) Abnormal posture (11/07/20) Physical Therapy Treatment Note PT-OP-A Visit Information Start: 10/13/20 18:40 Freq: Status: Active Protocol: Document 11/07/20 09:03 LRN (Rec: 11/07/20 09:48 LRN [id number]) Out-Patient Physical Therapy Visit Information Visit Information Visit Type Treatment Note Visit Start Time 09:03 Visit Stop Time 09:43 Total Visit Minutes 40 Visit Number 3 Evaluation Information Evaluation Date 10/17/20 Precautions Precautions History or Endometriosis ( surgery at time of hyste) Hyste with ovaries and cervix removed (2013) Cervicalgia with hx of ruptured C5-C6 disc (2010) 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 Torn LCL & ACL and fx tibia plateau - 05/09/2019 Upper back injury in training - 1995 PT-OP-B Current Condition Start: 10/13/20 18:40 Freq: Status: Active Protocol: Document 10/17/20 10:38 LRN (Rec: 10/17/20 11:25 LRN [id number]) Current Condition History of Current Condition Onset Date 1 yr ago. Current Complaints Urinary frequency & incontinence w/occasional sneezing & trampoline use History of Current Condition Childbirth 2008, endometriosis with hyste (ovaries and cervix removed at [facility] in [place]) and endometrial tissue removed. Since surgery has occasional sharp jabs of pain pitch fork into abdomen happens 3x/ month (previously was 3x/day). Has done a lot to take out inflammation (no gluten or dairy) with lessening of pain. Prior Treatments and Tests Hyste in 2013 with excision of interior tissue to remove endometriosis tissue. First year had no bladder issue. Wears estrogen patch. Developmental History Developmental History Previous hx of Ruptured C5 - 2011. Has reduced inflammation in body by changing diet and lifestyle (lost 15# in 1.5 yrs ). Swims and rides bike. Treatment Goals Patient/Caregiver Goals Pt goal is to reduce urinary frequency and urinary leakage with sneezing and more confident jumping up/down. Prior Functional Status Baseline Function- ADL's Independent Baseline Function- Mobility Independent Baseline Function- Other No leakage with sneezing or jumping Frequent urination every 2 hrs . Current Functional Impairments (Reported) Functional Limitations- ADL's Uriary leakage with sneezing or jumping Frequent urination - hourly or less. 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 Personal Factors Other Personal Factors That May Effect Currently looking for a job. Therapy/Recovery History or Endometriosis ( surgery at time of hyste). Hyste with ovaries and cervix removed (2013). Cervicalgia with hx of ruptured C5 (2010). PT-OP-C Subjective Start: 10/13/20 18:40 Freq: Status: Active Protocol: Document 11/07/20 09:03 LRN (Rec: 11/07/20 09:48 LRN [id number]) OP-PT Subjective Patient Comments Patient Comments Notices how caffiene is a trigger for her urination onset. Has been practicing breathing with swimming. No changes with urinary leakage. Sneezed once without leakage and did aggravator PF contraction. PT-OP-I Pelvic Floor Start: 10/13/20 18:40 Freq: Status: Active Protocol: Document 10/17/20 10:38 LRN (Rec: 10/17/20 11:25 LRN [id number]) Pelvic Floor Assessment Urine Pelvic Floor Surgery No Urinary Symptoms Dribbling After Urination Other Urinary Symptoms Time between voids is every hour. Volume of urine passed is small. Sometimes feels bladder if full after urinating. Leakage Size Small Leakage Cause Sneeze Other Leakage Causes Jumping, waiting too long. Leaks Per Day Unknown Voiding Frequency 10-15 Nocturia 1 Bowel Bowel Surgery No Bowel Movement Frequency 1-2x/day [place] Stool Chart Type 1-7 4 Pelvic Clock Pelvic Clock 3-6 Tightness Pelvic Clock 6-9 Tightness Contraction Ability Manual Muscle Testing Left 3 Manual Muscle Testing Right 2 Manual Muscle Testing Anterior 3 Manual Muscle Testing Posterior 3 Muscle Endurance (Seconds) 10 Number of Quick Contractions In 10 10 Seconds Comments Pelvic Floor Comments Redness and tenderness of Labia Minora bilaterally. PT-OP-J Posture/Palpation/Skin Start: 10/13/20 18:40 Freq: Status: Active Protocol: Document 10/17/20 10:38 LRN (Rec: 10/17/20 11:25 LRN [id number]) Posture Evaluation Comments Posture Comments Sway back, slight anterior rotated pelvis. PT-OP-K Range of Motion Start: 10/13/20 18:40 Freq: Status: Active Protocol: Document 10/17/20 10:38 LRN (Rec: 10/17/20 11:25 LRN [id number]) Lumbar Spine Range of Motion Lumbar Spine Active Degrees Testing Position Standing Flexion 90 Extension 10 Rotation Left 40 Rotation Right 40 Lateral Flexion Left 10 Lateral Flexion Right 20 Hip Goniometric Range of Motion Hip Right Passive Testing Position Supine Abduction 40 Internal Rotation 35 External Rotation 45 Left Passive Testing Position Supine Abduction 30 Internal Rotation 30 External Rotation 60 PT-OP-M Strength Start: 10/13/20 18:40 Freq: Status: Active Protocol: Document 10/17/20 10:38 LRN (Rec: 10/17/20 11:25 LRN [id number]) Hip Strength Hip Manual Muscle Testing Right External Rotation 4+ Good+ Internal Rotation 4+ Good+ Left External Rotation 3 Fair Internal Rotation 4+ Good+ PT-OP-Q Treatments Start: 10/13/20 18:40 Freq: Status: Active Protocol: Document 11/07/20 09:03 LRN (Rec: 11/07/20 09:48 LRN [id number]) Therapeutic Exercises Supine Exercises Hip flexor stretch Supine Exercise Name Geovany test position, f/b active stretch x 10 Side bilateral Reps/Minutes 6' Piriformis Supine Exercise Name Knee to opposite shoulder & Cross legged knee KTC Side bilateral Reps/Minutes 8' Hip ER stretch Supine Exercise Name Fig 4 stretch (R>L), f/b active stretch Side bilateral Reps/Minutes 10' Comments Extra time for finding best max position Happy Baby Pose Supine Exercise Name Happy Baby Pose Reps/Minutes 3' Deep Breathing Supine Exercise Name Deep Breathing Training Reps/Minutes 4' Self-Care/Home Management Treatment Education Other Education Discussed and educated pt in urinary voiding after clenching from holding PF while trying to get to bathroom. Educated pt in methods for downtraining ANS with deep breathing, visualization and talking to bladder via direct neural control & discussed water intake Activities Self-Care/Home Management Activities Issued & reviewed HEP: Hip stretches of ER, IR x 2 positions, Ilipsoas PT-OP-T Assessment and Plan Start: 10/13/20 18:40 Freq: Status: Active Protocol: Document 11/07/20 09:03 LRN (Rec: 11/07/20 09:48 LRN [id number]) Physical Therapy Assessment Goals Three Impairment Urinary leakage with sneezing or jumping. Short Term Goal (STG) Pt will be able to sneeze without urinary leakage for improved pelvic health. STG Duration 11/28/20 (11/07/20: met x 1) Mcc Goal (LTG) Pt will be able to confidently jump with less fear of urinary leakage for improved social engagement with activities such as stair ambulation. LTG Duration 01/15/21 Two Impairment Increased urinary frequency ( every hour) Short Term Goal (STG) Pt will be educated in PF/hip/ core stretches and urinary delay technique for bladder retraining. STG Duration 11/28/20 Mcc Goal (LTG) Decrease toileting frequency to every 2 hours or more during the day to allow pt to return to workforce without fear of frequent voiding. LTG Duration 01/15/21 One Impairment Lacks appropriate self care HEP Short Term Goal (STG) Pt will be educated in general vulvar and genital care. STG Duration 10/28/20 [place] Goal (LTG) Pt will be independent in a self care HEP and use of dilator for PF stretching. LTG Duration 01/15/21 (11/06/20: Progressed ) Progress Towards Goals Progress Comments HEP progressed. Pt deep breathing properly with upper chest still. Assessment Summary Assessment Pt did not bring bladder diary and is not interested; therefore will continue therapy without. Pt tight with L trunk, Boy hip IR's and hip ER's R>L. She finally able to show awareness of proper deep breathing method and was able to perform holding chest still. Good understanding of hip stretches without pain. Physical Therapy Plan Frequency and Duration Frequency of Treatment 1x/Week Plan of Care Start Date 10/17/20 Plan of Care End Date 01/15/21 Next Visit Focus/Plan Next Note Type Treatment Note Next Visit Plan Review transfers w/proper breathing. Teach general vulvar and genital care & proper squatting and lifting w /appropriate breathing and with sit to stand; HEP: PF/ core stretches, PF stretching with dilator, discuss foods, downtraining of ANS with mood stone or visualization. Improve hip/trunk mobility, improve abdominal soft tissue (bladder and for endo) mobility as needed.
--- NOTE | 2020-11-13 17:43 | PT.OTN ---
Current Diagnoses Stiffness of right hip, not elsewhere classified (11/13/20) Stiffness of left hip, not elsewhere classified (11/13/20) Other specified disorders of muscle (11/13/20) Post-void dribbling (11/13/20) Mixed incontinence (11/13/20) Abnormal posture (11/13/20) Physical Therapy Treatment Note PT-OP-A Visit Information Start: 10/13/20 18:40 Freq: Status: Active Protocol: Document 11/13/20 09:47 LRN (Rec: 11/13/20 10:36 LRN [id number]) Out-Patient Physical Therapy Visit Information Visit Information Visit Type Treatment Note Visit Start Time 09:47 Visit Stop Time 10:35 Total Visit Minutes 50 Visit Number 4 Evaluation Information Evaluation Date 10/17/20 Precautions Precautions History or Endometriosis ( surgery at time of hyste) Hyste with ovaries and cervix removed (2013) Cervicalgia with hx of ruptured C5-C6 disc (2010) 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 Torn LCL & ACL and fx tibia plateau - 05/09/2019 Upper back injury in training - 1995 PT-OP-B Current Condition Start: 10/13/20 18:40 Freq: Status: Active Protocol: Document 10/17/20 10:38 LRN (Rec: 10/17/20 11:25 LRN [id number]) Current Condition History of Current Condition Onset Date 1 yr ago. Current Complaints Urinary frequency & incontinence w/occasional sneezing & trampoline use History of Current Condition Childbirth 2008, endometriosis with hyste (ovaries and cervix removed at [facility] in [place]) and endometrial tissue removed. Since surgery has occasional sharp jabs of pain pitch fork into abdomen happens 3x/ month (previously was 3x/day). Has done a lot to take out inflammation (no gluten or dairy) with lessening of pain. Prior Treatments and Tests Hyste in 2013 with excision of interior tissue to remove endometriosis tissue. First year had no bladder issue. Wears estrogen patch. Developmental History Developmental History Previous hx of Ruptured C5 - 2011. Has reduced inflammation in body by changing diet and lifestyle (lost 15# in 1.5 yrs ). Swims and rides bike. Treatment Goals Patient/Caregiver Goals Pt goal is to reduce urinary frequency and urinary leakage with sneezing and more confident jumping up/down. Prior Functional Status Baseline Function- ADL's Independent Baseline Function- Mobility Independent Baseline Function- Other No leakage with sneezing or jumping Frequent urination every 2 hrs . Current Functional Impairments (Reported) Functional Limitations- ADL's Uriary leakage with sneezing or jumping Frequent urination - hourly or less. 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 Personal Factors Other Personal Factors That May Effect Currently looking for a job. Therapy/Recovery History or Endometriosis ( surgery at time of hyste). Hyste with ovaries and cervix removed (2013). Cervicalgia with hx of ruptured C5 (2010). PT-OP-C Subjective Start: 10/13/20 18:40 Freq: Status: Active Protocol: Document 11/13/20 09:47 LRN (Rec: 11/13/20 10:36 LRN [id number]) OP-PT Subjective Patient Comments Patient Comments Success with no leakage on sneezing. PT-OP-I Pelvic Floor Start: 10/13/20 18:40 Freq: Status: Active Protocol: Document 10/17/20 10:38 LRN (Rec: 10/17/20 11:25 LRN [id number]) Pelvic Floor Assessment Urine Pelvic Floor Surgery No Urinary Symptoms Dribbling After Urination Other Urinary Symptoms Time between voids is every hour. Volume of urine passed is small. Sometimes feels bladder if full after urinating. Leakage Size Small Leakage Cause Sneeze Other Leakage Causes Jumping, waiting too long. Leaks Per Day Unknown Voiding Frequency 10-15 Nocturia 1 Bowel Bowel Surgery No Bowel Movement Frequency 1-2x/day [place] Stool Chart Type 1-7 4 Pelvic Clock Pelvic Clock 3-6 Tightness Pelvic Clock 6-9 Tightness Contraction Ability Manual Muscle Testing Left 3 Manual Muscle Testing Right 2 Manual Muscle Testing Anterior 3 Manual Muscle Testing Posterior 3 Muscle Endurance (Seconds) 10 Number of Quick Contractions In 10 10 Seconds Comments Pelvic Floor Comments Redness and tenderness of Labia Minora bilaterally. PT-OP-J Posture/Palpation/Skin Start: 10/13/20 18:40 Freq: Status: Active Protocol: Document 10/17/20 10:38 LRN (Rec: 10/17/20 11:25 LRN [id number]) Posture Evaluation Comments Posture Comments Sway back, slight anterior rotated pelvis. PT-OP-K Range of Motion Start: 10/13/20 18:40 Freq: Status: Active Protocol: Document 10/17/20 10:38 LRN (Rec: 10/17/20 11:25 LRN [id number]) Lumbar Spine Range of Motion Lumbar Spine Active Degrees Testing Position Standing Flexion 90 Extension 10 Rotation Left 40 Rotation Right 40 Lateral Flexion Left 10 Lateral Flexion Right 20 Hip Goniometric Range of Motion Hip Right Passive Testing Position Supine Abduction 40 Internal Rotation 35 External Rotation 45 Left Passive Testing Position Supine Abduction 30 Internal Rotation 30 External Rotation 60 PT-OP-M Strength Start: 10/13/20 18:40 Freq: Status: Active Protocol: Document 10/17/20 10:38 LRN (Rec: 10/17/20 11:25 LRN [id number]) Hip Strength Hip Manual Muscle Testing Right External Rotation 4+ Good+ Internal Rotation 4+ Good+ Left External Rotation 3 Fair Internal Rotation 4+ Good+ PT-OP-Q Treatments Start: 10/13/20 18:40 Freq: Status: Active Protocol: Document 11/13/20 09:47 LRN (Rec: 11/13/20 10:36 LRN [id number]) Therapeutic Exercises Supine Exercises Supine twist Supine Exercise Name LTR Side bilateral Reps/Minutes 4' Comments Extra time for proper positioning in max stretch Sidelying Exercises Trunk rotation stretch Sidelying Exercise Name Open book Side bilateral Reps/Minutes 3x Standing Exercises Extended side angle Standing Exercise Name Extended side angle lunge, reaching back and to ceiling Side bilateral Reps/Minutes 6' Forward bend trunk rotation Standing Exercise Name Forward bend trunk rot, hand on plinth reach to ceiling Side bilateral Reps/Minutes 6' Other Exercises Thread the Needle Other Exercise Name Thread the needle stretch Reps/Minutes 3x each Therapeutic Activity Therapeutic Activity Work training w/breathing Name Pushing tray table and bending reaching lifting. Reps/Minutes 6' Comments Also done as complete series combination of activities. Sit<>Stand w/breathing Name Sit <> stand w/breathing training Reps/Minutes 3' + 3' Comments Also done as work activity. Sit<>Supine w/breathing Name Sit <> Supine w/breathing training Reps/Minutes 4' +3' Comments Training for different mechanics of getting out of bed (sit up, log roll). Also done as work activity. Self-Care/Home Management Treatment Education Patient Education Home Exercise Program Activities Self-Care/Home Management Activities Issued & reviewed HEP core stretches: Thread the needle, Sidelie trunk rot; standing: trunk rot and lateral trunk stretch, supine trunk rot stretch x 2 and supine CASSANDRA stretch PT-OP-T Assessment and Plan Start: 10/13/20 18:40 Freq: Status: Active Protocol: Document 11/13/20 09:47 LRN (Rec: 11/13/20 10:36 LRN [id number]) Physical Therapy Assessment Goals Three Impairment Urinary leakage with sneezing or jumping. Short Term Goal (STG) Pt will be able to sneeze without urinary leakage for improved pelvic health. (11/13/20: Pt able to sneeze without urinary leakage) STG Duration 11/28/20 (11/13/20: MET GOAL) [facility] Goal (LTG) Pt will be able to confidently jump with less fear of urinary leakage for improved social engagement with activities such as stair ambulation. LTG Duration 01/15/21 Two Impairment Increased urinary frequency ( every hour) Short Term Goal (STG) Pt will be educated in PF/hip/ core stretches and urinary delay technique for bladder retraining. STG Duration 11/28/20 Event Designer Goal (LTG) Decrease toileting frequency to every 2 hours or more during the day to allow pt to return to workforce without fear of frequent voiding. LTG Duration 01/15/21 One Impairment Lacks appropriate self care HEP Short Term Goal (STG) Pt will be educated in general vulvar and genital care. STG Duration 10/28/20 [facility] Goal (LTG) Pt will be independent in a self care HEP and use of dilator for PF stretching. (11/13/20: HEP of core stretches: Trunk rot, SB, abdominal stretching) LTG Duration 01/15/21 (11/13/20: Progressed ) Progress Towards Goals Progress Comments STG#3 MET. Progressed HEP of core stretches. Assessment Summary Assessment Pt slowly improving with ability to sneeze without leaking. She shows good understanding of core stretches. Review of hip ( hip flow) ext/flex stretch needed. Physical Therapy Plan Frequency and Duration Frequency of Treatment 1x/Week Plan of Care Start Date 10/17/20 Plan of Care End Date 01/15/21 Next Visit Focus/Plan Next Note Type Treatment Note Next Visit Plan Review core stretches and add hip (hip flow) stretches ( extensors & flexors). HEP: Add PF Child's Pose and Wag the Tail stretch; PF stretching with dilator, discuss foods, downtraining of ANS with mood stone or visualization. Improve hip/ trunk mobility, improve abdominal soft tissue (bladder and for endo) mobility as needed.
--- NOTE | 2020-12-02 12:06 | PT.OTN ---
Current Diagnoses Stiffness of right hip, not elsewhere classified (12/02/20) Stiffness of left hip, not elsewhere classified (12/02/20) Other specified disorders of muscle (12/02/20) Post-void dribbling (12/02/20) Mixed incontinence (12/02/20) Abnormal posture (12/02/20) Physical Therapy Treatment Note PT-OP-A Visit Information Start: 10/13/20 18:40 Freq: Status: Active Protocol: Document 12/02/20 10:40 LRN (Rec: 12/02/20 11:18 LRN [id number]) Out-Patient Physical Therapy Visit Information Visit Information Visit Type Treatment Note Visit Start Time 10:40 Visit Stop Time 11:18 Total Visit Minutes 38 Visit Number 5 Evaluation Information Evaluation Date 10/17/20 Precautions Precautions History or Endometriosis ( surgery at time of hyste) Hyste with ovaries and cervix removed (2013) Cervicalgia with hx of ruptured C5-C6 disc (2010) 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 Torn LCL & ACL and fx tibia plateau - 05/09/2019 Upper back injury in training - 1995 PT-OP-B Current Condition Start: 10/13/20 18:40 Freq: Status: Active Protocol: Document 10/17/20 10:38 LRN (Rec: 10/17/20 11:25 LRN [id number]) Current Condition History of Current Condition Onset Date 1 yr ago. Current Complaints Urinary frequency & incontinence w/occasional sneezing & trampoline use History of Current Condition Childbirth 2008, endometriosis with hyste (ovaries and cervix removed at [facility] in [place]) and endometrial tissue removed. Since surgery has occasional sharp jabs of pain pitch fork into abdomen happens 3x/ month (previously was 3x/day). Has done a lot to take out inflammation (no gluten or dairy) with lessening of pain. Prior Treatments and Tests Hyste in 2013 with excision of interior tissue to remove endometriosis tissue. First year had no bladder issue. Wears estrogen patch. Developmental History Developmental History Previous hx of Ruptured C5 - 2011. Has reduced inflammation in body by changing diet and lifestyle (lost 15# in 1.5 yrs ). Swims and rides bike. Treatment Goals Patient/Caregiver Goals Pt goal is to reduce urinary frequency and urinary leakage with sneezing and more confident jumping up/down. Prior Functional Status Baseline Function- ADL's Independent Baseline Function- Mobility Independent Baseline Function- Other No leakage with sneezing or jumping Frequent urination every 2 hrs . Current Functional Impairments (Reported) Functional Limitations- ADL's Uriary leakage with sneezing or jumping Frequent urination - hourly or less. 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 Personal Factors Other Personal Factors That May Effect Currently looking for a job. Therapy/Recovery History or Endometriosis ( surgery at time of hyste). Hyste with ovaries and cervix removed (2013). Cervicalgia with hx of ruptured C5 (2010). PT-OP-C Subjective Start: 10/13/20 18:40 Freq: Status: Active Protocol: Document 12/02/20 10:40 LRN (Rec: 12/02/20 11:18 LRN [id number]) OP-PT Subjective Patient Comments Patient Comments A little better. Leakage when holding too long, but can hold it a little longer. Doing some ex's and has started yoga. PT-OP-I Pelvic Floor Start: 10/13/20 18:40 Freq: Status: Active Protocol: Document 10/17/20 10:38 LRN (Rec: 10/17/20 11:25 LRN [id number]) Pelvic Floor Assessment Urine Pelvic Floor Surgery No Urinary Symptoms Dribbling After Urination Other Urinary Symptoms Time between voids is every hour. Volume of urine passed is small. Sometimes feels bladder if full after urinating. Leakage Size Small Leakage Cause Sneeze Other Leakage Causes Jumping, waiting too long. Leaks Per Day Unknown Voiding Frequency 10-15 Nocturia 1 Bowel Bowel Surgery No Bowel Movement Frequency 1-2x/day [place] Stool Chart Type 1-7 4 Pelvic Clock Pelvic Clock 3-6 Tightness Pelvic Clock 6-9 Tightness Contraction Ability Manual Muscle Testing Left 3 Manual Muscle Testing Right 2 Manual Muscle Testing Anterior 3 Manual Muscle Testing Posterior 3 Muscle Endurance (Seconds) 10 Number of Quick Contractions In 10 10 Seconds Comments Pelvic Floor Comments Redness and tenderness of Labia Minora bilaterally. PT-OP-J Posture/Palpation/Skin Start: 10/13/20 18:40 Freq: Status: Active Protocol: Document 10/17/20 10:38 LRN (Rec: 10/17/20 11:25 LRN [id number]) Posture Evaluation Comments Posture Comments Sway back, slight anterior rotated pelvis. PT-OP-K Range of Motion Start: 10/13/20 18:40 Freq: Status: Active Protocol: Document 10/17/20 10:38 LRN (Rec: 10/17/20 11:25 LRN [id number]) Lumbar Spine Range of Motion Lumbar Spine Active Degrees Testing Position Standing Flexion 90 Extension 10 Rotation Left 40 Rotation Right 40 Lateral Flexion Left 10 Lateral Flexion Right 20 Hip Goniometric Range of Motion Hip Right Passive Testing Position Supine Abduction 40 Internal Rotation 35 External Rotation 45 Left Passive Testing Position Supine Abduction 30 Internal Rotation 30 External Rotation 60 PT-OP-M Strength Start: 10/13/20 18:40 Freq: Status: Active Protocol: Document 10/17/20 10:38 LRN (Rec: 10/17/20 11:25 LRN [id number]) Hip Strength Hip Manual Muscle Testing Right External Rotation 4+ Good+ Internal Rotation 4+ Good+ Left External Rotation 3 Fair Internal Rotation 4+ Good+ PT-OP-Q Treatments Start: 10/13/20 18:40 Freq: Status: Active Protocol: Document 12/02/20 10:40 LRN (Rec: 12/02/20 11:18 LRN [id number]) Therapeutic Exercises Supine Exercises Child's Pose Supine Exercise Name Child's Pose (HEP) Reps/Minutes 10 hold x 6 Comments Extra time with verbal cuing needed to obtain PF as well as hip stretch CASSANDRA stretch Supine Exercise Name Cobra (HEP) Reps/Minutes Holding thorugh 2 breaths x 6 Hip flexor stretch Supine Exercise Name Geovany test position, f/b active stretch x 10 (HEP) Side bilateral Reps/Minutes 6' Other Exercises Cat/Camel Other Exercise Name Cat/Camel (LB stretch HEP) Reps/Minutes 10 x 5 Wag the Tail stretch Other Exercise Name Trunk & hip stretch (HEP) Side bilateral Reps/Minutes 10 x 5 Neuro Re-Education Treatment Other Activities ANS downtraining Details Verbal relaxation technique from head to toe Reps/Duration 5' Comments Pt appeared to be able to relax with talking through relaxation technique and appeared to have a fair to good understanding. Self-Care/Home Management Treatment Education Patient Education Home Exercise Program Other Education Educated pt on bladder irritants with handout issued & reviewed. Educated & discussed methods for pt to decrease ANS tone per verbal downtraining head to toe and use of mood ring. Activities Self-Care/Home Management Activities Issued & reviewed HEP: hip flexor stretch in standing and supine (Geovany Test position) . PT-OP-T Assessment and Plan Start: 10/13/20 18:40 Freq: Status: Active Protocol: Document 12/02/20 10:40 LRN (Rec: 12/02/20 11:18 LRN [id number]) Physical Therapy Assessment Goals Three Impairment Urinary leakage with sneezing or jumping. Short Term Goal (STG) Pt will be able to sneeze without urinary leakage for improved pelvic health. (11/13/20: Pt able to sneeze without urinary leakage) STG Duration 11/28/20 (11/13/20: MET GOAL) Intermediate Goal (LTG) Pt will be able to confidently jump with less fear of urinary leakage for improved social engagement with activities such as stair ambulation. LTG Duration 01/15/21 Two Impairment Increased urinary frequency ( every hour) Short Term Goal (STG) Pt will be educated in PF/hip/ core stretches and urinary delay technique for bladder retraining. (12/02/20: Pt educated in PF/ core/hip flex & ext stretches. Deferred education in urinary delay technique to due possible tightness from endometriosis history). STG Duration 11/28/20 (12/02/20: Progressing) Intermediate Goal (LTG) Decrease toileting frequency to every 2 hours or more during the day to allow pt to return to workforce without fear of frequent voiding. LTG Duration 01/15/21 One Impairment Lacks appropriate self care HEP Short Term Goal (STG) Pt will be educated in general vulvar and genital care. STG Duration 10/28/20 (10/24/20: MET GOAL) Director Sales And Marketing Goal (LTG) Pt will be independent in a self care HEP and use of dilator for PF stretching. (12/02/20: HEP of core & hip flex/ext stretches, has previously issued core stretches) LTG Duration 01/15/21 (12/02/20: Progressed) Progress Towards Goals Progress Comments Progressed HEP of hip and lateral trunk stretches. Assessment Summary Assessment Pt still not leaking with sneezing. Pt did not have good recall of all her home ex 's. She appeared to respond well to ANS downtraining of head to toe instructional relaxation. Physical Therapy Plan Frequency and Duration Frequency of Treatment 1x/Week Plan of Care Start Date 10/17/20 Plan of Care End Date 01/15/21 Next Visit Focus/Plan Next Note Type Treatment Note Next Visit Plan Review HEP hip ER/IR stretches and add lateral stretch. Review HEP hip stretches last session extensors & flexors ( Geovany Test position or standing). Child's Pose and Wag the Tail stretch. Assess PF tone and add PF stretching with dilator if appropriate. Initiate aggrevator strengthening of vertical stress to progress towards no leakage with jumping. Start bladder retraining for voiding frequency of every 2 or more hours. Downtraining ANS review: relaxation head to toe, mood stone, or visualization. Vagus nerve manual therapy. Improve hip/trunk mobility, improve abdominal soft tissue (bladder and for endo) mobility as needed.
--- NOTE | 2021-01-22 14:04 | PT.OPDS ---
Current Diagnoses Stiffness of right hip, not elsewhere classified (12/02/20) Stiffness of left hip, not elsewhere classified (12/02/20) Other specified disorders of muscle (12/02/20) Post-void dribbling (12/02/20) Mixed incontinence (12/02/20) Abnormal posture (12/02/20) Visit Care Team Role Provider Type Astrid Dave DO Attending Provider Physician Primary Care Provider Referring Provider Specialty: [facility] Address: [address] [place] [address], [address], [address] Email: [email or web address] Visit Number Visit Number 5 Discharge Summary PT-OP-B Current Condition Start: 10/13/20 18:40 Freq: Status: Active Protocol: Document 10/17/20 10:38 LRN (Rec: 10/17/20 11:25 LRN [id number]) Current Condition History of Current Condition Onset Date 1 yr ago. Current Complaints Urinary frequency & incontinence w/occasional sneezing & trampoline use History of Current Condition Childbirth 2008, endometriosis with hyste (ovaries and cervix removed at [facility] in [place]) and endometrial tissue removed. Since surgery has occasional sharp jabs of pain pitch fork into abdomen happens 3x/ month (previously was 3x/day). Has done a lot to take out inflammation (no gluten or dairy) with lessening of pain. Prior Treatments and Tests Hyste in 2013 with excision of interior tissue to remove endometriosis tissue. First year had no bladder issue. Wears estrogen patch. Developmental History Developmental History Previous hx of Ruptured C5 - 2010. Has reduced inflammation in body by changing diet and lifestyle (lost 15# in 1.5 yrs ). Swims and rides bike. Treatment Goals Patient/Caregiver Goals Pt goal is to reduce urinary frequency and urinary leakage with sneezing and more confident jumping up/down. Prior Functional Status Baseline Function- ADL's Independent Baseline Function- Mobility Independent Baseline Function- Other No leakage with sneezing or jumping Frequent urination every 2 hrs . Current Functional Impairments (Reported) Functional Limitations- ADL's Uriary leakage with sneezing or jumping Frequent urination - hourly or less. 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 Personal Factors Other Personal Factors That May Effect Currently looking for a job. Therapy/Recovery History or Endometriosis ( surgery at time of hyste). Hyste with ovaries and cervix removed (2013). Cervicalgia with hx of ruptured C5 (2010). PT-OP-C Subjective Start: 10/13/20 18:40 Freq: Status: Active Protocol: Document 12/02/20 10:40 LRN (Rec: 12/02/20 11:18 LRN [id number]) OP-PT Subjective Patient Comments Patient Comments A little better. Leakage when holding too long, but can hold it a little longer. Doing some ex's and has started yoga. PT-OP-I Pelvic Floor Start: 10/13/20 18:40 Freq: Status: Active Protocol: Document 10/17/20 10:38 LRN (Rec: 10/17/20 11:25 LRN [id number]) Pelvic Floor Assessment Urine Pelvic Floor Surgery No Urinary Symptoms Dribbling After Urination Other Urinary Symptoms Time between voids is every hour. Volume of urine passed is small. Sometimes feels bladder if full after urinating. Leakage Size Small Leakage Cause Sneeze Other Leakage Causes Jumping, waiting too long. Leaks Per Day Unknown Voiding Frequency 10-15 Nocturia 1 Bowel Bowel Surgery No Bowel Movement Frequency 1-2x/day [place] Stool Chart Type 1-7 4 Pelvic Clock Pelvic Clock 3-6 Tightness Pelvic Clock 6-9 Tightness Contraction Ability Manual Muscle Testing Left 3 Manual Muscle Testing Right 2 Manual Muscle Testing Anterior 3 Manual Muscle Testing Posterior 3 Muscle Endurance (Seconds) 10 Number of Quick Contractions In 10 10 Seconds Comments Pelvic Floor Comments Redness and tenderness of Labia Minora bilaterally. PT-OP-J Posture/Palpation/Skin Start: 10/13/20 18:40 Freq: Status: Active Protocol: Document 10/17/20 10:38 LRN (Rec: 10/17/20 11:25 LRN [id number]) Posture Evaluation Comments Posture Comments Sway back, slight anterior rotated pelvis. PT-OP-K Range of Motion Start: 10/13/20 18:40 Freq: Status: Active Protocol: Document 10/17/20 10:38 LRN (Rec: 10/17/20 11:25 LRN [id number]) Lumbar Spine Range of Motion Lumbar Spine Active Degrees Testing Position Standing Flexion 90 Extension 10 Rotation Left 40 Rotation Right 40 Lateral Flexion Left 10 Lateral Flexion Right 20 Hip Goniometric Range of Motion Hip Right Passive Testing Position Supine Abduction 40 Internal Rotation 35 External Rotation 45 Left Passive Testing Position Supine Abduction 30 Internal Rotation 30 External Rotation 60 PT-OP-M Strength Start: 10/13/20 18:40 Freq: Status: Active Protocol: Document 10/17/20 10:38 LRN (Rec: 10/17/20 11:25 LRN [id number]) Hip Strength Hip Manual Muscle Testing Right External Rotation 4+ Good+ Internal Rotation 4+ Good+ Left External Rotation 3 Fair Internal Rotation 4+ Good+ PT-OP-T Assessment and Plan Start: 10/13/20 18:40 Freq: Status: Active Protocol: Document 01/22/21 13:58 LRN (Rec: 01/22/21 14:03 LRN [id number]) Physical Therapy Assessment Goals Three Impairment Urinary leakage with sneezing or jumping. Short Term Goal (STG) Pt will be able to sneeze without urinary leakage for improved pelvic health. (11/13/20: Pt able to sneeze without urinary leakage) STG Duration 11/28/20 (11/13/20: MET GOAL) Detention Goal (LTG) Pt will be able to confidently jump with less fear of urinary leakage for improved social engagement with activities such as stair ambulation. LTG Duration 01/15/21 (01/22/21: Pt unavailable for final assessment) Two Impairment Increased urinary frequency ( every hour) Short Term Goal (STG) Pt will be educated in PF/hip/ core stretches and urinary delay technique for bladder retraining. (12/02/20: Pt educated in PF/ core/hip flex & ext stretches. Deferred education in urinary delay technique to due possible tightness from endometriosis history). STG Duration 11/28/20 (12/02/20: Progressing) Wall Washer Goal (LTG) Decrease toileting frequency to every 2 hours or more during the day to allow pt to return to workforce without fear of frequent voiding. LTG Duration 01/15/21 (01/22/21: Pt unavailable for final assessment) One Impairment Lacks appropriate self care HEP Short Term Goal (STG) Pt will be educated in general vulvar and genital care. STG Duration 10/28/20 (10/24/20: MET GOAL) Wall Washer Goal (LTG) Pt will be independent in a self care HEP and use of dilator for PF stretching. (12/02/20: HEP of core & hip flex/ext stretches, has previously issued core stretches) LTG Duration 01/15/21 (12/02/20: Progressed) Assessment Summary Assessment Pt was seen for 3 treatment visits and was last seen . On her last visit she was not leaking with sneezing, but she did not have good recall of all her home ex's. The pt has not returned for further physical therapy; therefore she is being discharged from therapy due to lack of attendance. Physical Therapy Plan Discharge Physical Therapy Discharge Reasons No Longer Attending PT Discharge Comments Thank you for your referral.
== END 2021-01-23 07:54 | disposition home or self-care (01) ==
LOC: PHYS 10:30
PROVIDERS: PCP Family Medicine; Referring Provider Family Medicine; Visit Provider Family Medicine
DX: M62.89 Other specified disorders of muscle (principal); M25.651 Stiffness of right hip, not elsewhere classified; M25.652 Stiffness of left hip, not elsewhere classified; R29.3 Abnormal posture; N39.43 Post-void dribbling; N39.46 Mixed incontinence
CPT/HCPCS: 97110; 97162; 97530; 97535

== ENCOUNTER → 2020-12-02 11:25 | Outpatient (CLI) | payer OTHER, SELFPAY ==
[2020-12-02 12:52] LABS: Rubella Antibody IgG 39.6 IU/mL (>15)
[2020-12-03 06:18] LABS: Rubeola Measles IgG 98.3 AU/mL (Immune >16.4)
== END ==
PROVIDERS: PCP Family Medicine; Referring Provider Family Medicine; Visit Provider Family Medicine
DX: Z01.84 Encounter for antibody response examination (principal)
CPT/HCPCS: 36415; 86735; 86762; 86765

== ENCOUNTER → 2021-05-11 07:32 | Outpatient (CLI) | payer OTHER, SELFPAY ==
[2021-05-11 08:01] LABS: COVID19 -Nasal RAPID Negative (Negative)
== END ==
PROVIDERS: PCP Family Medicine; Visit Provider Physician Assistant
DX: Z20.822 Contact with and (suspected) exposure to COVID-19 (principal)
CPT/HCPCS: 87635

== ENCOUNTER 2021-06-15 15:51 | Emergency (ER) | payer OTHER, SELFPAY ==
[2021-06-15 16:04] VITALS: BP 122/57; PULSE 59; RESP 16; TEMP 36.9; O2SAT 100
--- NOTE | 2021-06-15 16:10 | DI.CT.S_ITS ---
PROCEDURE: CT CERVICAL SPINE WO CON INDICATIONS: fall TECHNIQUE: Noncontrast 3 mm thick sections acquired from the skull base to the T4 level. Sagittal and coronal reformats were then constructed. For radiation dose reduction, the following was used: automated exposure control, adjustment of mA and/or kV according to patient size. COMPARISON: None. FINDINGS: Image quality: Excellent. Bones: No fractures or dislocations. Visualized superior ribs are intact. C4-C5 and C5-C6 [id number] degenerative disc changes. Soft tissues: Prevertebral soft tissues are normal in thickness. No paravertebral hematomas. No apical pneumothoraces. IMPRESSION: No fracture. No acute osseous lesion. If symptoms and/or clinical suspicion for pathology persists, evaluation with MRI should be considered for further assessment. Dictated by: Priyanka Lockhart MD, PhD on 06/15/2021 at 16:37 Approved by: Priyanka Lockhart MD, PhD on 06/15/2021 at 16:41
--- NOTE | 2021-06-15 16:10 | DI.CT.S_ITS ---
PROCEDURE: CT HEAD/BRAIN WO CON INDICATIONS: fall TECHNIQUE: Noncontrast 4.5 mm thick angled axial sections acquired from the foramen magnum to the vertex, with coronal and sagittal reformats. For radiation dose reduction, the following was used: automated exposure control, adjustment of mA and/or kV according to patient size. COMPARISON: None. FINDINGS: Image quality: Excellent. CSF spaces: Basal cisterns are patent. No extra-axial fluid collections. Ventricles are normal in size and shape. Brain: No midline shift. No intracranial masses or hemorrhage. Aiken-white matter interface is normal. Skull and face: Calvarium and visualized facial bones are intact, without suspicious lesions. Sinuses: Visualized sinuses and mastoids are clear. IMPRESSION: No acute intracranial disease process. Dictated by: Priyanka Lockhart MD, PhD on 06/15/2021 at 16:36 Approved by: Priyanka Lockhart MD, PhD on 06/15/2021 at 16:37
--- NOTE | 2021-06-15 20:03 | PC.NURSE ---
denies NV after injurt reports light and sound sensitivity, no visual disturbances no nystagmus
--- NOTE | 2021-06-15 20:23 | ED_ITS ---
HPI - Headache General Chief Complaint: Headache Stated Complaint: FELL HIT HEAD FATIGUE Time Seen by Provider: 06/15/21 20:23 Mode of arrival: Ambulatory History of Present Illness HPI Narrative: Otherwise healthy 50-year-old woman was out running 48 hours ago and tripped over a sidewalk landing on her left side with a contusion to the left hand strain to the left side of her shoulder and hit the left side of her head on the concrete sidewalk. She was able to get up and continue to walk home. Over the next 48 hours she was finding increasing neck pain hand pain now noticing some right shoulder pain and also concerned that she had a low-grade headache, t rouble focusing and concentrating, increasingly irritable and a sense that she was just ?off?. She denies vomiting, significant nausea, abdominal pain, diarrhea or constipation. She has had no chest pain palpitations or shortness of breath. Related Data Previous Rx's Medication Instructions Recorded ondansetron 4 mg disintegrating 4 mg PO BID PRN #14 tab 12/15/18 tablet clotrimazole-betamethasone 1 1 applictn TOP BID #15 gram 12/25/18 %-0.05 % topical cream omeprazole 40 mg capsule,delayed 40 mg PO DAILY #30 cap 12/25/18 release erythromycin 5 mg/gram (0.5 %) eye 0.5 inch EYE-BOTH QID #3.5 g 03/28/20 ointment estradiol 0.05 mg/24 hr semiweekly See Rx Instructions .ROUTE 09/18/20 transdermal patch .COMPLEX #24 ea Allergies Allergy/AdvReac Type Severity Reaction Status Date / Time ciprofloxacin [CIPROFLOXACIN] Allergy Unknown TENDONITIS Verified 08/25/20 14:41 promethazine [PROMETHAZINE] Allergy Unknown Verified 08/25/20 14:41 Review of Systems Review of Systems Narrative: Remainder of complete review of systems is otherwise unremarkable except for that included in the HPI. Patient History Medical History Bicuspid aortic valve Hyperlipidemia Pelvic floor relaxation Surgical History History of esophagogastroduodenoscopy (EGD) (~03/14/20) Status post appendectomy (04/29/14) Status post dilation and curettage (04/10/12) Status post dilation and curettage (09/17/11) Status post hysterectomy with oophorectomy (04/29/14) Status post hysteroscopy (09/17/11) Status post laparoscopy (09/17/11) Status post ovarian cystectomy (09/17/11) Family History Father CAD (coronary artery disease) CVA (cerebral infarction) Hyperlipidemia Family history of Alzheimer's disease Mother Hyperlipidemia Fibromyalgia muscle pain Cutaneous lupus erythematosus History of breast cancer Prediabetes Brain tumor Social History Smoking Status: Never smoker Smoking Status: Never smoker Exam Initial Vital Signs Initial Vital Signs: Vital Signs Temperature 98.4 F 06/15/21 16:04 Pulse Rate 59 L 06/15/21 16:04 Respiratory Rate 16 06/15/21 16:04 Blood Pressure 122/57 L 06/15/21 16:04 Pulse Oximetry 100 06/15/21 16:04 General: Fatigued appearing but in no acute distress. Able to give a complete and coherent history. Well-nourished well-developed HEENT: Moist mucous membranes, normal sclera with reactive pupils, Neck: Trapezius muscle spasm radiating toward left-sided paracervical muscles. Respiratory: Lungs are clear to auscultation, no wheezing no rales no rhonchi. Full and symmetrical air movement Cardiac: Regular rate and rhythm no murmurs no bruits Skin: Warm and dry, minor contusion to the dorsum of left hand Neurologic: Grossly neurologically intact with no obvious asymmetries or abnormalities Extremities: Full and hindered range of motion at both shoulders, well perfused Psych: Cooperative, appropriate insight and affect Course Orders Ordered: ED Orders 06/15/21 16:10 CT cervical spine wo con Stat CT head/brain wo con Stat Vital Signs Vital signs: Vital Signs - 8 hr 06/15/21 16:04 Temperature 98.4 F Pulse Rate 59 L Respiratory Rate 16 Blood Pressure 122/57 L Pulse Oximetry 100 MDM - Headache Imaging Data CT scan - head: Radiologist's Impression: FINDINGS:? Image quality:? Excellent.? ? CSF spaces:? Basal cisterns are patent.? No extra-axial fluid collections.? Ventricles are normal in size and shape.? ? Brain:? No midline shift.? No intracranial masses or hemorrhage.? Aiken-white matter interface is normal.? ? Skull and face:? Calvarium and visualized facial bones are intact, without suspicious lesions.? ? Sinuses:? Visualized sinuses and mastoids are clear.? ? IMPRESSION:? No acute intracranial disease process. ? ? Dictated by: Priyanka Lockhart MD, PhD on 06/15/2021 at 16:36? ?? CT - cervical spine: Radiologist's Impression: FINDINGS:? Image quality:? Excellent.? ? Bones:? No fractures or dislocations.? Visualized superior ribs are intact.? C4- C5 and C5-C6 jxph-fq-kqsulbwu degenerative disc changes.? ? Soft tissues:? Prevertebral soft tissues are normal in thickness.? No paravertebral hematomas.? No apical pneumothoraces.? ? ? IMPRESSION:? No fracture. No acute osseous lesion. If symptoms and/or clinical suspicion for pathology persists, evaluation with MRI should be considered for further assessment. ? ? ? Dictated by: Priyanka Lockhart MD, PhD on 06/15/2021 at 16:37? ?? MDM Narrative Medical decision making narrative: 50-year-old woman with a fall onto a concrete sidewalk landing on her left side in hitting her left head 48 hours ago noticing appropriate healing with increasing aches and pains and signs and symptoms consistent with postconcussion syndrome. Reviewed anticipatory resolution of concussion syndrome as well as recommendation for cognitive rest. She has no evidence of additional significant injury that requires further imaging at this time. Questions are answered and she is safe for home discharge CT scan MIPS criteria: 50-year-old woman with increasing confusion, short-term memory deficit 48 hours after falling and hitting the left side of her head. Discharge Plan Departure Patient Disposition: Home Clinical Impression: Neck muscle strain, Contusion of hand Concussion Qualifiers: Encounter type: initial encounter Loss of consciousness presence/duration: without LOC Qualified Code(s): S06.0X0A - Concussion without loss of consciousness, initial encounter Instructions: DI for Postconcussion Syndrome Activity Restrictions/Additional Instructions: Thank you for coming in today It is very normal to hurt more in the 1st 48 hours after an injury. The bumps and bruises as well as the neck strain will continue to improve. Using 400 mg of ibuprofen (2 blkc-wlb-hvgnlxr pills) and 1 Tylenol every 6 hours can be very helpful in controlling pain. Regarding your head injury, you are having signs of a classic concussion. Allowing yourself some ?cognitive rest? can be very helpful. This means avoiding TV, much time on your phone and you may even find that reading is challenging for a few days. I would expect the symptoms to improve in about the same time frame as the other bumps strains and bruises. Using 400 mg of ibuprofen (2 czkx-spa-ykgeisb pills) and 1 Tylenol every 6 hours can be very helpful in controlling pain. If you have new or worsening symptoms, please feel free to return to the emergency department Prescriptions: No Action ondansetron 4 mg tablet,disintegrating 4 mg PO BID PRN (Reason: nausea and vomiting) Qty: 14 0RF erythromycin 5 mg/gram (0.5 %) ointment 0.5 inch EYE-BOTH QID Qty: 3.5 0RF estradiol 0.05 mg/24 hr patch semiweekly See Rx Instructions .ROUTE .COMPLEX Qty: 24 3RF Dose Instruction: APPLY 1 PATCH TO SKIN TWICE WEEKLY (1 PATCH FOR 3 DAYS ALTERNATING WITH 1 PATCH FOR 4 DAYS EACH WEEK) FOR 3 WEEKS PER 4 WEEK CYCLE Rx Instructions: APPLY 1 PATCH TO SKIN TWICE WEEKLY (1 PATCH FOR 3 DAYS ALTERNATING WITH 1 PATCH FOR 4 DAYS EACH WEEK) FOR 3 WEEKS PER 4 WEEK CYCLE omeprazole 40 mg capsule,delayed release(DR/EC) 40 mg PO DAILY Qty: 30 1RF Hold Instructions: not using clotrimazole-betamethasone 1-0.05 % cream 1 applictn TOP BID Qty: 15 0RF Referrals: Astrid Dave DO [Primary Care Provider] -
[2021-06-15 20:43] VITALS: BP 112/74; PULSE 84; RESP 14
== END 2021-06-15 20:44 | disposition home or self-care (01) ==
PROVIDERS: Emergency Provider Emergency Medicine; PCP Family Medicine
DX: S06.0X0A Concussion without loss of consciousness, initial encounter (principal); S16.1XXA Strain of muscle, fascia and tendon at neck level, initial encounter; S60.222A Contusion of left hand, initial encounter; W01.198A Fall on same level from slipping, tripping and stumbling with subsequent striking against other object, initial encounter
CPT/HCPCS: 70450; 72125; 99283; 99284

== ENCOUNTER → 2021-07-21 11:31 | Outpatient (CLI) | payer OTHER, SELFPAY ==
--- NOTE | 2021-07-21 | DI.MG.S_ITS ---
BILATERAL DIGITAL SCREENING MAMMOGRAM 3D/2D WITH CAD: 07/21/2021 CLINICAL: Routine screening. Family history of breast cancer. Comparison is made to exams dated: 07/12/2020 mammogram, 12/14/2018 mammogram, and 09/23/2017 mammogram - [facility]. The tissue of both breasts is heterogeneously dense. This may lower the sensitivity of mammography. Current study was also evaluated with a Computer Aided Detection (CAD) system. There are benign calcifications in both breasts. No significant masses, calcifications, or other findings are seen in either breast. There has been no significant interval change. IMPRESSION: BENIGN There is no mammographic evidence of malignancy. A 1 year screening mammogram is recommended. This exam was interpreted at Station ID: [id number]. NOTE: For mammograms, a report in lay terms will be sent to the patient. Approximately 15% of breast malignancies will not be visualized mammographically. In the management of a palpable breast mass, a negative mammogram must not discourage biopsy of a clinically suspicious lesion. Electronically Signed By: Christopher pitt/frankie:07/21/2021 13:07:07 letter sent: Normal Exam ACR BI-RADS Category 2: Benign Finding(s) 3342F
== END ==
PROVIDERS: PCP Family Medicine; Referring Provider Family Medicine; Visit Provider Family Medicine
DX: Z12.31 Encounter for screening mammogram for malignant neoplasm of breast (principal)
CPT/HCPCS: 77063; 77067

== ENCOUNTER → 2022-04-06 12:06 | Outpatient (CLI) | payer OTHER, SELFPAY ==
--- NOTE | 2022-04-06 12:13 | DI.RAD.S_ITS ---
PROCEDURE: XR LUMBAR SPINE 2-3V INDICATIONS: LOWER BACK PAIN TECHNIQUE: 3 views of the lumbar spine were acquired. COMPARISON: None. FINDINGS: Bones: 5 khd-whm-qapxnnx vertebrae are present. There is normal bony alignment. No vertebral body compression fractures. No suspicious bony lesions. Mild L2-L3, L3-L4 and L4-L5 degenerative disc changes. Mild L5-S1 facet hypertrophy. Soft tissues: Overlying bowel gas pattern is normal. No suspicious soft tissue calcifications. IMPRESSION: Mild multilevel degenerative disc disease. No fracture. No acute osseous lesion. If symptoms and/or clinical suspicion for pathology persists, evaluation with MRI should be considered for further assessment. Dictated by: Priyanka Lockhart MD, PhD on 04/06/2022 at 13:53 Approved by: Priyanka Lockhart MD, PhD on 04/06/2022 at 13:53
--- NOTE | 2022-04-06 12:13 | DI.RAD.S_ITS ---
PROCEDURE: XR CERVICAL SPINE 2V OR 3V INDICATIONS: LOWER BACK PAIN TECHNIQUE: 2 view(s) of the cervical spine were acquired. COMPARISON: None. FINDINGS: Bones: No fractures or dislocations to the T1 level. The lateral masses of C1 appear intact on the odontoid view. No suspicious bony lesions. Moderate C4-C5 and C5-C6 degenerative disc changes. Mild C6-C7 degenerative disc disease. Mild bilateral C3-C4 and C5-C6 uncovertebral joint hypertrophy. Mild right C4-C5 uncovertebral joint hypertrophy. Soft tissues: No prevertebral soft tissue swelling. IMPRESSION: Mild multilevel degenerative disc disease. Mild multilevel uncovertebral hypertrophy. No fracture. No acute osseous lesion. If symptoms and/or clinical suspicion for pathology persists, evaluation with MRI should be considered for further assessment. Dictated by: Priyanka Lockhart MD, PhD on 04/06/2022 at 13:53 Approved by: Priyanka Lockhart MD, PhD on 04/06/2022 at 13:55
--- NOTE | 2022-04-06 12:13 | DI.RAD.S_ITS ---
PROCEDURE: XR THORACIC SPINE 2V INDICATIONS: LOWER BACK PAIN TECHNIQUE: 2 views of the thoracic spine were acquired. COMPARISON: None. FINDINGS: Bones: No fractures or dislocations. No suspicious bony lesions. 12 pairs of ribs are noted, and appear intact where visualized. Mild degenerative disc changes noted throughout the thoracic spine. Soft tissues: No paravertebral stripe thickening. IMPRESSION: Mild multilevel degenerative disc disease. No fracture. No acute osseous lesion. If symptoms and/or clinical suspicion for pathology persists, evaluation with MRI should be considered for further assessment. Dictated by: Priyanka Lockhart MD, PhD on 04/06/2022 at 13:52 Approved by: Priyanka Lockhart MD, PhD on 04/06/2022 at 13:52
== END ==
PROVIDERS: PCP Pediatrics; Referring Provider Chiropractor; Visit Provider Chiropractor
DX: M51.34 Other intervertebral disc degeneration, thoracic region (principal); M51.36 Other intervertebral disc degeneration, lumbar region; M50.321 Other cervical disc degeneration at C4-C5 level; M99.11 Subluxation complex (vertebral) of cervical region; M99.02 Segmental and somatic dysfunction of thoracic region; M99.03 Segmental and somatic dysfunction of lumbar region; M99.04 Segmental and somatic dysfunction of sacral region; M99.05 Segmental and somatic dysfunction of pelvic region; M54.50 Low back pain, unspecified
CPT/HCPCS: 72040; 72070; 72100

== ENCOUNTER → 2023-08-18 08:00 | Outpatient (CLI) | payer OTHER, SELFPAY ==
--- NOTE | 2023-08-18 08:02 | DI.MG.S_ITS ---
BILATERAL DIGITAL SCREENING MAMMOGRAM 3D/2D WITH CAD: 08/18/2023 CLINICAL: Routine screening. Family history of breast cancer. Comparison is made to exams dated: 07/21/2021 mammogram, 07/12/2020 mammogram, and 12/14/2018 mammogram - [facility]. Both breasts are heterogeneously dense, which may obscure small masses (category c / 51-75% glandular tissue). Current study was also evaluated with a Computer Aided Detection (CAD) system. There are benign calcifications in both breasts. No significant masses, calcifications, or other findings are seen in either breast. There has been no significant interval change. IMPRESSION: BENIGN There is no mammographic evidence of malignancy. A 1 year screening mammogram is recommended. Based on Tyrer-Cuzick model (a risk assessment model), the patient's lifetime risk is 30.5% and her 10 year risk is 7.8%. If a patient has an elevated risk, a more comprehensive evaluation should be considered and/or a referral to a genetic counselor. The [employer], [employer], and NCCN Guidelines advise the consideration of Breast MRI as an adjunct to screening mammography in patients whose Lifetime risk to develop breast cancer is 20% or higher. This exam was interpreted at Station ID: [id number]. NOTE: For mammograms, a report in lay terms will be sent to the patient. Approximately 15% of breast malignancies will not be visualized mammographically. In the management of a palpable breast mass, a negative mammogram must not discourage biopsy of a clinically suspicious lesion. Electronically Signed By: Eleni rodriguez/frankie:08/18/2023 10:28:37 letter sent: Normal Exam ACR BI-RADS Category 2: Benign Finding(s) 3342F
== END ==
LOC: MAMMO 08:01
PROVIDERS: PCP Family Medicine; Referring Provider Family Medicine; Visit Provider Family Medicine
DX: Z12.31 Encounter for screening mammogram for malignant neoplasm of breast (principal); Z80.3 Family history of malignant neoplasm of breast; R92.333 Mammographic heterogeneous density, bilateral breasts
CPT/HCPCS: 77063; 77067

== ENCOUNTER → 2023-08-27 07:47 | Outpatient (CLI) | payer OTHER, SELFPAY ==
[2023-08-27 08:49] LABS: Add Manual Diff / Slide Review NO; Basophils Absolute Auto 0 /uL (0-100); Basophils Percent Auto 0.5 % (0-2); Eosinophils Absolute Auto 200 /uL (0-450); Eosinophils Percent Auto 4.2 % (2-4); Hematocrit 38.2 % (36-46); Hemoglobin 13.2 g/dL (12.0-16.0); Lymphocytes Absolute Auto 2100 /uL (1100-4500); Lymphocytes Percent Auto 35.6 % (25-40); Mean Corpuscular HGB Conc 34.5 % (30-36); Mean Corpuscular Hemoglobin 30.6 PG (26-34); Mean Corpuscular Volume 88.7 fL (80-100); Monocytes Absolute Auto 500 /uL (0-900); Monocytes Percent Auto 7.8 % (3-14); Neutrophils Absolute Auto 3000 /uL (1500-7000); Neutrophils Percent Auto 51.9 % (50-75); Platelet Count 217 X10^3/uL (150-400); Red Blood Cell Count 4.31 X10^6/uL (4.0-5.2); Red Cell Distribution Width 13.7 % (11.6-14.8); White Blood Cell Count 5.8 X10^3/uL (4.5-11.0)
[2023-08-27 08:55] LABS: Hemoglobin A1C% w Est Avg Glu 5.4 % (4.0-6.0)
[2023-08-27 09:05] LABS: Alanine Aminotransferase 30 IU/L (<35); Albumin 4.5 g/dL (3.5-5.0); Albumin Globulin Ratio 1.7 (1.0-2.8); Alkaline Phosphatase 65 U/L (38-126); Aspartate Aminotransferase 35 IU/L (14-36); BUN Creatinine Ratio 24.6 (6-22); Bilirubin Total 0.6 mg/dL (0.2-1.3); Blood Urea Nitrogen 15 mg/dL (7-17); Calcium 9.2 mg/dL (8.4-10.2); Carbon Dioxide 31 mmol/L (22-32); Chloride 104 mmol/L (98-107); Estimated Glomerular Filt Rate > 60 mL/min (>60); Globulin 2.6 g/dL (1.7-4.1); Glucose 77 mg/dL (70-100); HEMOLYSIS < 15 (0-50); Potassium 4.2 mmol/L (3.4-5.1); Sodium 139 mmol/L (137-145); Total Protein 7.1 g/dL (6.3-8.2)
[2023-08-27 09:10] LABS: High Sensitivity CRP - Cardiac 1.4 mg/L (1.0-3.0)
[2023-08-27 09:35] LABS: TSH w/ Reflex to FT4 1.92 uIU/mL (0.47-4.68)
[2023-08-30 09:22] LABS: Cholesterol, Total 261 mg/dL (100-199); HDL-Cholesterol 46 mg/dL (>39); HDL-Particle (Total) 28.9 umol/L (>=30.5); LDL Particle 1493 nmol/L (<1000); LDL Size 20.2 nm (>20.5); LDL-Cholsterol 182 mg/dL (0-99); LP-IR Score 61 (<=45); Small LDL- Particle 962 nmol/L (<=527); Triglycerides 176 mg/dL (0-149)
[2023-08-31 23:49] LABS: Insulin Level Total 6.4 uIU/mL (2.6-24.9)
== END ==
LOC: LAB 07:49
PROVIDERS: PCP Family Medicine; Referring Provider Family Medicine; Visit Provider Family Medicine
DX: R73.9 Hyperglycemia, unspecified (principal); R53.83 Other fatigue; Z13.228 Encounter for screening for other metabolic disorders; D64.9 Anemia, unspecified; Q23.1 Congenital insufficiency of aortic valve
CPT/HCPCS: 36415; 80053; 80061; 83036; 83525; 83704; 84443; 85025; 86140

== ENCOUNTER → 2023-11-17 10:45 | Outpatient (CLI) | payer OTHER, SELFPAY ==
--- NOTE | 2023-11-17 10:46 | DI.MRI.S_ITS ---
BREAST MRI OF BOTH BREASTS: 11/17/2023 CLINICAL: High risk screening. Family history of breast cancer. TECHNIQUE: The patient was placed prone in a dedicated breast imaging coil. Precontrast axial STIR and 3D FLASH without fat saturation sequences were obtained. Both before and after bolus injection of contrast, sequential 1-minute axial 3D FLASH with fat saturation sequences for 3 time points, with subtraction images and maximum intensity projections (MIP's) generated. Delayed sagittal FLASH images with fat saturation were also obtained. Computer-aided detection, including computer algorithm analysis of MRI image data for lesion detection and characterization, pharmacokinetic analysis, with further physician review for interpretation, was performed. COMPARISON: [facility], , MM SCREENING MAMMO BI, 08/18/2023, 8:18. Image quality: Excellent. There is marked background parenchymal enhancement. There is heterogeneously dense fibroglandular tissue in the bilateral breast. Right breast: No suspicious mass, non-mass enhancement, or architectural distortion. No skin or nipple abnormalities. No axillary or internal mammary chain adenopathy. Left breast: No suspicious mass, non-mass enhancement, or architectural distortion. No skin or nipple abnormalities. No axillary or internal mammary chain adenopathy. Miscellaneous: Visualized portions of the upper abdomen and chest appear unremarkable. IMPRESSION: NEGATIVE 1. No MRI evidence for malignancy in the right breast. 2. No MRI evidence for malignancy in the left breast. Recommend annual screening mammography and consideration for continued annual adjunct screening breast MRI. COMMENT: The imaging literature indicates that a negative contrast breast MRI examination has a high sensitivity and a moderate specificity for detecting and excluding invasive carcinomas to a detection threshold of 3-5 mm; nonetheless, appropriate clinical and mammographic follow-up are recommended. MRI is not sensitive for detecting DCIS (ductal carcinoma in situ) and may not detect large invasive neoplasms that show only minimal enhancement such as mucinous carcinoma. If there are suspicious calcifications or clinically worrisome palpable masses, then biopsy should still be considered. Invasive neoplasms can be hidden by co-existent and benign enhancement caused by mastitis, hormone therapy effects, radiation therapy, , and recent biopsy or surgery. False positive examinations can occur in a number of circumstances, including breasts that have recently been subject to invasive procedures and those that contain atypical ductal hyperplasia, hormonally stimulated glandular tissue, fat necrosis, or radial scars. Future imaging is recommended as follows: 08/18/2024 screening mammogram. This exam was interpreted at Station ID: [id number]. Electronically Signed By: Christopher Elaine M.D. aty/:11/18/2023 07:23:42 ACR BI-RADS Category 1: Negative [id number]
== END ==
PROVIDERS: PCP Family Medicine; Referring Provider Family Medicine; Visit Provider Family Medicine
DX: R92.333 Mammographic heterogeneous density, bilateral breasts (principal); Z91.89 Other specified personal risk factors, not elsewhere classified; R63.5 Abnormal weight gain
CPT/HCPCS: 77049; A9579

== ENCOUNTER → 2024-07-17 07:06 | Outpatient (CLI) | payer OTHER, SELFPAY ==
[2024-07-17 08:40] LABS: Alanine Aminotransferase 24 IU/L (<35); Albumin 4.1 g/dL (3.5-5.0); Albumin Globulin Ratio 1.6 (1.0-2.8); Alkaline Phosphatase 68 U/L (38-126); Aspartate Aminotransferase 35 IU/L (14-36); BUN Creatinine Ratio 16.7 (6-22); Bilirubin Total 0.7 mg/dL (0.2-1.3); Blood Urea Nitrogen 14 mg/dL (7-17); Calcium 9.3 mg/dL (8.4-10.2); Carbon Dioxide 29 mmol/L (22-32); Chloride 102 mmol/L (98-107); Estimated Glomerular Filt Rate > 60 mL/min (>60); Globulin 2.6 g/dL (1.7-4.1); Glucose 91 mg/dL (70-100); HEMOLYSIS < 15 (0-50); Sodium 138 mmol/L (137-145); Total Protein 6.7 g/dL (6.3-8.2)
[2024-07-17 08:56] LABS: Vitamin D 25 Hydroxy (D3) 17.4 ng/mL (30.0-100.0)
[2024-07-17 09:15] LABS: TSH w/ Reflex to FT4 2.13 uIU/mL (0.47-4.68)
[2024-07-18 03:41] LABS: CRP, High Sensitivity 2.63 mg/L (0.00-3.00)
== END ==
PROVIDERS: PCP Family Medicine; Referring Provider Family Medicine; Visit Provider Family Medicine
DX: E89.40 Asymptomatic postprocedural ovarian failure (principal); Z79.890 Hormone replacement therapy; E78.2 Mixed hyperlipidemia; R63.5 Abnormal weight gain; E55.9 Vitamin D deficiency, unspecified
CPT/HCPCS: 36415; 80053; 80061; 82306; 83036; 83525; 83704; 84443; 86140

== ENCOUNTER → 2024-11-02 08:06 | Outpatient (CLI) | payer OTHER, SELFPAY ==
--- NOTE | 2024-11-02 08:07 | DI.MG.S_ITS ---
MM screening mammo BI: 11/02/2024. BI-RADS: 1 CLINICAL: 53-year old female for bilateral screening mammogram. Tyrer-Cuzick lifetime risk of 23.3%. Current reported family history of breast cancer: mother. PRIOR EXAMS: 11/17/2023, 08/18/2023, 07/21/2021, 07/12/2020, 12/14/2018, 09/23/2017. MAMMOGRAPHY TECHNIQUE: 2D and 3D (tomosynthesis) digital mammographic views obtained, with additional images as needed for full coverage. Current study was also evaluated with a Computer Aided Detection (CAD) system. DENSITY C. The breasts are heterogeneously dense, which may obscure small masses. MAMMOGRAPHY FINDINGS Bilateral: No suspicious mass, asymmetry, microcalcification, or other abnormality seen. IMPRESSION: * No evidence of malignancy. RECOMMENDATIONS Bilateral * According to the Tyrer-Cuzick Risk Assessment Model, based on the information provided your patient has a greater than 20% lifetime risk for developing breast cancer. Consider supplemental screening with breast MRI and participation in a high risk screening program. * Annual screening mammography. OVERALL ASSESSMENT CATEGORY BI-RADS-1: Negative. The [employer] recommends annual screening mammography beginning at age 40 for women with average risk of breast cancer. ELECTRONICALLY SIGNED: Christopher Elaine M.D. on 11/04/2024 at 09:21:54 PM PT Interpreting Station ID: [id number]
== END ==
PROVIDERS: PCP Family Medicine; Referring Provider Family Medicine; Visit Provider Family Medicine
DX: Z12.31 Encounter for screening mammogram for malignant neoplasm of breast (principal); Z80.3 Family history of malignant neoplasm of breast; R92.333 Mammographic heterogeneous density, bilateral breasts
CPT/HCPCS: 77063; 77067

== ENCOUNTER → 2024-11-12 08:44 | Outpatient (CLI) | payer OTHER, SELFPAY ==
--- NOTE | 2024-11-12 09:04 | DI.MRI.S_ITS ---
PROCEDURE: MR SHOULDER LT WO CON INDICATIONS: ARTHROSIS LEFT AC JOINT TECHNIQUE: Noncontrast oblique coronal T2 fast spin echo with fat saturation, oblique sagittal T1 spin echo and T2 fast spin echo with fat saturation, axial T1 spin echo and T2 fast spin echo with fat saturation through the shoulder. COMPARISON: [facility], CR, XR SHOULDER 2+ VIEWS LEFT, 10/25/2024, 11:11. FINDINGS: Image quality: Excellent. Rotator cuff: Focal, low-grade, articular sided tear at the critical zone of the anterior supraspinatus (8:9). The infraspinatus tendon is unremarkable. The teres minor is unremarkable. The subscapularis is unremarkable. No muscle edema or fatty atrophy. Bones and bursae: Minimal degenerative change of the acromioclavicular joint with capsular hypertrophy. Type 1 acromion. No os acromiale. No subacromial/subdeltoid bursitis. Minimal subchondral cystic changes at the posterior greater tuberosity, reactive. No acute fracture. No focal chondral defect of the glenohumeral articulation. Capsule and soft tissues: The labrum is intact. The extra-articular and the intra-articular biceps tendon are unremarkable. Trace glenohumeral effusion. No intra-articular body. Mild muscle edema of the lateral deltoid, raising concern for mild muscle strain. IMPRESSION: 1. Minimal degenerative changes of the acromioclavicular joint. 2. Focal low-grade tear of the supraspinatus. 3. Mild muscle strain of the lateral deltoid. Dictated by: Tracee Bhatti M.D. on 11/12/2024 at 11:09 Approved by: Tracee Bhatti M.D. on 11/12/2024 at 11:17
== END ==
PROVIDERS: PCP Family Medicine; Referring Provider Orthopaedic Surgery; Visit Provider Orthopaedic Surgery
DX: M75.42 Impingement syndrome of left shoulder (principal); M75.112 Incomplete rotator cuff tear or rupture of left shoulder, not specified as traumatic; S46.812A Strain of other muscles, fascia and tendons at shoulder and upper arm level, left arm, initial encounter; M19.012 Primary osteoarthritis, left shoulder; X58.XXXA Exposure to other specified factors, initial encounter
CPT/HCPCS: 73221

== ENCOUNTER → 2024-11-26 07:15 | Outpatient (CLI) | payer OTHER, SELFPAY ==
[2024-11-26 09:04] LABS: TSH w/ Reflex to FT4 2.48 uIU/mL (0.47-4.68)
[2024-11-27 04:36] LABS: CRP, High Sensitivity 3.60 mg/L (0.00-3.00)
== END ==
PROVIDERS: PCP Family Medicine; Referring Provider Family Medicine; Visit Provider Family Medicine
DX: E78.2 Mixed hyperlipidemia (principal); N95.1 Menopausal and female climacteric states; E55.9 Vitamin D deficiency, unspecified; Z79.890 Hormone replacement therapy; E89.40 Asymptomatic postprocedural ovarian failure
CPT/HCPCS: 36415; 80061; 83525; 83704; 84402; 84403; 84443; 86140

== ENCOUNTER → 2025-04-10 16:40 | Outpatient (CLI) | payer OTHER, SELFPAY ==
--- NOTE | 2025-04-10 16:44 | DI.RAD.S_ITS ---
PROCEDURE: XR FOOT LT MIN 3V INDICATIONS: Ground level fall TECHNIQUE: 3 views of the foot were acquired. COMPARISON: [facility], , FOOT 3V LEFT, 03/05/2016, 9:02. FINDINGS: Bones: No fractures or dislocations. No suspicious bony lesions. Soft tissues: No tibiotalar joint effusion. Achilles tendon appears normal. IMPRESSION: No acute bony abnormality. Approved by: Denise Reinoso M.D.,Ph.D. on 04/10/2025 at 17:34
--- NOTE | 2025-04-10 16:44 | DI.RAD.S_ITS ---
PROCEDURE: XR KNEE LT 1TO2V INDICATIONS: r/o fracture, unable to stand after fall TECHNIQUE: 2 views of the knee were acquired. COMPARISON: [facility], CR, XR KNEE LT 3V, 05/10/2019, 9:43. FINDINGS: Bones: No fractures or dislocations. No suspicious bony lesions. Soft tissues: No joint effusion. No suspicious soft tissue calcifications. IMPRESSION: No acute bony abnormality or significant effusion. Approved by: Denise Reinoso M.D.,Ph.D. on 04/10/2025 at 17:32
--- NOTE | 2025-04-10 16:44 | DI.RAD.S_ITS ---
PROCEDURE: XR HIP W PEL IF DONE LT 2V INDICATIONS: Ground level fall TECHNIQUE: AP pelvis with lateral view(s) of the left hip(s). COMPARISON: None. FINDINGS: Bones: No fractures or dislocations. Pelvic ring appears intact. No suspicious bony lesions. Mild bilateral hip degenerative changes. Soft tissues: The visualized bowel gas pattern is normal. No suspicious soft tissue calcifications. IMPRESSION: No acute bony abnormality. Mild bilateral hip degenerative changes. If symptoms persist with conservative management, consider cross-sectional imaging such as CT or MRI. Approved by: Denise Reinoso M.D.,Ph.D. on 04/10/2025 at 17:33
--- NOTE | 2025-04-10 16:44 | DI.RAD.S_ITS ---
PROCEDURE: XR ANKLE LT MIN 3V INDICATIONS: r/o fracture, unable to stand after fall TECHNIQUE: 3 views of the ankle were acquired. COMPARISON: None. FINDINGS: Bones: No fractures or dislocations. Ankle mortise is normally aligned. No suspicious bony lesions. Soft tissues: No tibiotalar joint effusion. Achilles tendon appears normal. IMPRESSION: No acute bony abnormality or significant effusion. Approved by: Denise Reinoso M.D.,Ph.D. on 04/10/2025 at 17:35
== END ==
PROVIDERS: PCP Family Medicine; Referring Provider Nurse Practitioner Family; Visit Provider Nurse Practitioner Family
DX: M25.569 Pain in unspecified knee (principal); M25.579 Pain in unspecified ankle and joints of unspecified foot
CPT/HCPCS: 73502; 73560; 73610; 73630